=== PATIENT | female | born 1985 | race Caucasian/White ===

== ENCOUNTER 2019-01-01 07:54 | Outpatient (CLI) | payer BC, SELFPAY ==
[2019-01-01 09:17] LABS: TSH (W/Ref FT4) 1.56 uIU/mL (0.358-3.74)
== END 2019-01-01 08:14 ==
PROVIDERS: PCP Family Medicine; Visit Provider Family Medicine
DX: E89.0 Postprocedural hypothyroidism (principal)
CPT/HCPCS: 36415; 84443

== ENCOUNTER 2020-02-08 21:59 | Outpatient (REF) | payer BC, SELFPAY ==
[2020-02-08 19:36] LABS: TSH (W/Ref FT4) 0.11 uIU/mL (0.36-3.74)
[2020-02-08 20:14] LABS: FREE T4 1.29 ng/dL (0.76-1.46)
== END 2020-02-08 22:19 ==
LOC: NCHCN 21:59
PROVIDERS: PCP Family Medicine; Visit Provider Family Medicine
DX: E89.0 Postprocedural hypothyroidism (principal)
CPT/HCPCS: 84439; 84443

== ENCOUNTER 2020-08-03 09:54 | Outpatient (REF) | payer BC, SELFPAY ==
[2020-08-03 14:05] LABS: TSH (W/Ref FT4) 0.43 uIU/mL (0.36-3.74)
== END 2020-08-03 10:14 ==
LOC: NCHCN 09:54
PROVIDERS: PCP Family Medicine; Visit Provider Family Medicine
DX: E89.0 Postprocedural hypothyroidism (principal)
CPT/HCPCS: 84443

== ENCOUNTER 2022-01-30 16:00 | Outpatient (REF) | payer BC, SELFPAY ==
[2022-01-30 20:34] LABS: Calculated LDL 139 mg/dL (<100); Cholesterol 212 mg/dL (<200); HDL Cholesterol 58 mg/dL (40-60); TSH (W/Ref FT4) 0.45 uIU/mL (0.36-3.74); Triglyceride 79 mg/dL (<150)
[2022-01-30 20:58] LABS: Hemoglobin A1C 5.2 % (<5.7)
[2022-02-01 09:49] LABS: Hepatitis C Ab w Rflx HCV PCR Negative (Negative)
== END 2022-01-30 16:01 | disposition home or self-care (01) ==
LOC: NCHCN 16:00
PROVIDERS: PCP Family Medicine; Visit Provider Family Medicine
DX: E89.0 Postprocedural hypothyroidism (principal); Z00.00 Encounter for general adult medical examination without abnormal findings; Z13.1 Encounter for screening for diabetes mellitus; Z11.59 Encounter for screening for other viral diseases; Z13.220 Encounter for screening for lipoid disorders
CPT/HCPCS: 80061; 86803; 83036; 84443

== ENCOUNTER 2022-02-19 10:42 | Outpatient (REF) | payer BC, SELFPAY ==
--- NOTE | 2022-02-19 09:45 | PAPFT_PTH ---
PATIENT: Shasha Keating LOC: [facility] U#:[id number] AGE/SX: 36/F ROOM: RE02/19/[address]: Katy Gomes NP : 1985 BED: DIS: 02/19/2022 SPEC #: [id number] RECD: 02/19/22 12:45 STATUS: VICENTA PATTEN #: [id number] KARL: 02/19/22 09:[address]: Katy Gomes NP DEPT: [facility] Cytology RECD BY: Adan Martinez Tissues: 1 - CX/ENDOCX FOR PAP SMEARS Procedures: PAP THIN PREP/UVM Screening HPV DNA PROBE Comments: [id number]
== END 2022-02-19 10:43 | disposition home or self-care (01) ==
LOC: LBN 10:42
PROVIDERS: PCP Family Medicine; Visit Provider Nurse Practitioner Women's Health
DX: Z12.4 Encounter for screening for malignant neoplasm of cervix (principal); Z11.51 Encounter for screening for human papillomavirus (HPV)
CPT/HCPCS: 88142; 87624

== ENCOUNTER 2023-03-27 18:39 | Outpatient (REF) | payer BC, SELFPAY ==
[2023-03-27 16:08] LABS: TSH (W/Ref FT4) 1.41 uIU/mL (0.36-3.74)
== END 2023-03-27 18:40 | disposition home or self-care (01) ==
LOC: NCHCN 18:39
PROVIDERS: PCP Family Medicine; Visit Provider Family Medicine
DX: E89.0 Postprocedural hypothyroidism (principal)
CPT/HCPCS: 84443

== ENCOUNTER 2023-08-21 02:36 | Outpatient (CLI) | payer BC, SELFPAY ==
[2023-08-21 15:07] LABS: TSH 1.14 uIU/mL (0.36-3.74)
[2023-08-21 15:18] LABS: Vitamin D 25 Total 35.5 ng/mL (30-100)
== END 2023-08-21 02:37 | disposition home or self-care (01) ==
LOC: LBO 02:37
PROVIDERS: PCP Family Medicine; Visit Provider Student in an Organized Health Care Education/Training Program
DX: E03.9 Hypothyroidism, unspecified (principal); E55.9 Vitamin D deficiency, unspecified
CPT/HCPCS: 36415; 82306; 84443

== ENCOUNTER 2024-04-01 07:30 | Outpatient (CLI) | payer BC, SELFPAY | END 2024-04-01 07:31 | disposition home or self-care (01) | LOC: LBO 07:31 | PROVIDERS: PCP Family Medicine; Visit Provider Obstetrics & Gynecology Gynecology | DX: Z32.01 Encounter for pregnancy test, result positive (principal); N91.2 Amenorrhea, unspecified; E03.9 Hypothyroidism, unspecified | CPT/HCPCS: 36415; 84443 ==

== ENCOUNTER 2024-05-20 03:23 | Outpatient (CLI) | payer BC, SELFPAY ==
[2024-05-20 16:32] LABS: Panorama Kit Sent via Fed Ex
[2024-05-20 16:37] LABS: Abs Immature Grans 0.06 10^3/uL (0.0-0.06); Absolute Basophil Count 0.06 10^3/uL (0.0-0.2); Absolute Eosinophil Count 0.21 10^3/uL (0.0-0.7); Absolute Lymphocyte Count 2.35 10^3/uL (1.2-3.4); Absolute Monocyte Count 0.72 10^3/uL (0.1-0.8); Absolute Neutrophil Count 5.71 10^3/uL (1.2-6.7); Basophils % 0.7 %; Eosinophils % 2.3 %; HGB 14.9 g/dL (11.2-15.7); Immature Grans % 0.7 %; Lymphocytes % 25.8 %; MCH 31.8 pg (27.0-33.0); MCHC 34.7 % (32.0-36.0); MCV 92 fL (80-95); Monocytes % 7.9 %; Neutrophils % 62.6 %; Platelet Count 245 10^3/uL (130-400); RBC 4.69 10^6/uL (3.93-5.22); RDW 13.4 % (11.7-14.6); RDW-SD 44.7 fL; WBC 9.11 10^3/uL (4.4-10.8)
[2024-05-20 17:52] LABS: TSH (W/Ref FT4) 14.95 uIU/mL (0.36-3.74)
[2024-05-20 18:13] LABS: FREE T4 0.88 ng/dL (0.76-1.46)
[2024-05-21 20:10] LABS: Hepatitis B Surface Ag Negative (Negative)
[2024-05-21 20:48] LABS: HIV-1/2 Ag & Ab Screen Negative (Negative)
[2024-05-21 20:55] LABS: Hepatitis C Ab w Rflx HCV PCR Negative (Negative)
[2024-05-22 10:45] LABS: Rubella IgG Ab (UVM) Positive (See Note); Varicella IgG Antibody Positive (See Note)
[2024-05-22 13:07] LABS: Chlamydia Result Negative (Negative); GC Result Negative (Negative)
[2024-05-24 13:36] LABS: Syphilis IgG w/Reflex Nonreactive (Nonreactive)
[2024-05-25 16:58] LABS: Specimen WB Whole Blood
== END 2024-05-20 03:24 | disposition home or self-care (01) ==
LOC: LBO 03:23
PROVIDERS: PCP Student in an Organized Health Care Education/Training Program; Visit Provider Advanced Practice Midwife
DX: Z34.91 Encounter for supervision of normal pregnancy, unspecified, first trimester (principal)
CPT/HCPCS: 36415; 81329; 86787; 86803; 86850; 86900; 86901; 87340; 87389; 87491; 87591; 83036; 84439; 84443; 85025; 86762; 86780; 87086; 87480; 87510; 87660

== ENCOUNTER 2024-07-14 02:27 | Outpatient (CLI) | payer BC, SELFPAY ==
[2024-07-14 15:49] LABS: TSH (W/Ref FT4) 1.31 uIU/mL (0.36-3.74)
== END 2024-07-14 02:28 | disposition home or self-care (01) ==
LOC: LBO 02:27
PROVIDERS: PCP Student in an Organized Health Care Education/Training Program; Visit Provider Advanced Practice Midwife
DX: E03.9 Hypothyroidism, unspecified (principal); Z34.92 Encounter for supervision of normal pregnancy, unspecified, second trimester
CPT/HCPCS: 36415; 84443

== ENCOUNTER 2024-09-16 03:39 | Outpatient (CLI) | payer BC, SELFPAY ==
[2024-09-16 12:28] LABS: HCT 39.2 % (36.0-46.0); HGB 13.2 g/dL (11.2-15.7); MCH 31.9 pg (27.0-33.0); MCHC 33.7 % (32.0-36.0); MCV 95 fL (80-95); MPV 10.5 fL (8.0-11.0); Platelet Count 233 10^3/uL (130-400); RBC 4.14 10^6/uL (3.93-5.22); RDW 12.2 % (11.7-14.6); WBC 10.05 10^3/uL (4.4-10.8)
[2024-09-16 12:36] LABS: Glucose,1 Hr (Glucola) 177 mg/dL (80-140)
[2024-09-16 16:05] LABS: TSH (W/Ref FT4) 1.93 uIU/mL (0.36-3.74)
== END 2024-09-16 03:40 | disposition home or self-care (01) ==
LOC: LBO 03:39
PROVIDERS: PCP Student in an Organized Health Care Education/Training Program; Visit Provider Advanced Practice Midwife
DX: Z34.92 Encounter for supervision of normal pregnancy, unspecified, second trimester (principal); E03.9 Hypothyroidism, unspecified; O26.892 Other specified pregnancy related conditions, second trimester; Z67.91 Unspecified blood type, Rh negative
CPT/HCPCS: 36415; 82950; 85027; 86850; 84443

== ENCOUNTER 2024-09-25 00:25 | Outpatient (CLI) | payer BC, SELFPAY ==
[2024-09-25 08:44] LABS: Glucose 1 Hour 180 mg/dL
[2024-09-25 10:42] LABS: Glucose 3 Hour 107 mg/dL
== END 2024-09-25 00:26 | disposition home or self-care (01) ==
LOC: LBO 00:26
PROVIDERS: PCP Student in an Organized Health Care Education/Training Program; Visit Provider Advanced Practice Midwife
DX: R73.09 Other abnormal glucose (principal)
CPT/HCPCS: 36415; 82951

== ENCOUNTER 2024-10-06 00:48 | Outpatient (CLI) | payer BC, SELFPAY ==
--- NOTE | 2024-10-06 06:00 | DI.US_ITS ---
Exam(s) US OB JOSEPH WEIGHT EXAM: US OB JOSEPH WEIGHT CLINICAL HISTORY: growth,joseph,marginal insertion umbilical cord,O43.193. TECHNIQUE: Transabdominal obstetrical ultrasound was performed. COMPARISON: US POCUS EXAM from 04/29/2024 FINDINGS: There is a single viable intrauterine gestation with cardiac activity identified-136 bpm The fetus is presently in cephalic position with the spine pointing anteriorly. Amniotic fluid: There is a normal amount of amniotic fluid with an JOSEPH of 14.73cm. Placental location: The placenta is posterior/fundal anterior and posterior possible succenturiate lo be.,With no evidence of placenta previa.Three-vessel umbilical cord is identified. Dating parameters place this at approximately 35 weeks and 1 day gestational age, implying GILMA of 12/03/2024. BPD measures 31 weeks and 6 days HC measures 32 weeks and 2 days AC measures 31 weeks and 3 days FL measures 31 weeks and 2 days Estimated weight is 1781 gm-3 pounds, 15 ounces Fetus is at the 36th percentile on the Hadlock scale. IMPRESSION:: Viable 3rd trimester gestation, as described above. DATA REPOSITORY:
== END 2024-10-06 01:08 ==
LOC: DI 00:49
PROVIDERS: PCP Student in an Organized Health Care Education/Training Program; Visit Provider Advanced Practice Midwife
DX: O43.193 Other malformation of placenta, third trimester; Z3A.30 30 weeks gestation of pregnancy
CPT/HCPCS: 76816

== ENCOUNTER 2024-11-04 07:43 | Outpatient (CLI) | payer BC, SELFPAY ==
[2024-11-04 08:06] VITALS: BP 115/73; PULSE 83; TEMP 36.8
[2024-11-04 08:15] VITALS: BP 115/73; PULSE 83
--- NOTE | 2024-11-04 08:53 | W.OBNST ---
Date of service: 11/04/24 Time of Service: 08:54 NST Evaluation Reason for NST Reasons for Nonstress Test: ADVANCED MATERNAL AGE Gestational Age Gestational Age in Weeks and Days: 35 Weeks and 5Days Test and Monitor Explained Test/Monitor Explained: Test Explained, Monitor Explained and Patient Verbalized Understanding Vital Signs Blood Pressure: 115/73 Pulse: 83 Temperature: 98.3 F Urine Results Urine Protein: Negative Urine Ketones: Negative Urine Glucose: Negative Urine Blood: Negative NST Information Date on Monitor: 11/04/24 Time on Monitor: 07:57 Date off Monitor: 11/04/24 Time off Monitor: 08:29 Total Time on Monitor: 32 NST Interventions: PO Hydration Contraction Frequency: 0 NST Evaluation Patient States Movement: Present FHR Baseline: 130 Variability: Moderate 6-25 bpm Accelerations: 15x15 Decelerations: None NST Results: Reactive Note Ultrasound Done: N/A. NST Note Note: Reactive NST, see note. NST Reviewed and Verified by: Eliana Woo
[2024-11-04 08:54] VITALS: BP 115/73; PULSE 83; TEMP 36.8
== END 2024-11-04 09:54 ==
LOC: BCD 07:43 → OBS 08:03
PROVIDERS: PCP Student in an Organized Health Care Education/Training Program; Visit Provider Advanced Practice Midwife
DX: O09.523 Supervision of elderly multigravida, third trimester (principal); Z3A.35 35 weeks gestation of pregnancy
CPT/HCPCS: 59025; 87081

== ENCOUNTER 2024-11-11 07:18 | Outpatient (CLI) | payer BC, SELFPAY ==
[2024-11-11 07:26] VITALS: BP 125/76; PULSE 86; TEMP 36.5
[2024-11-11 08:06] VITALS: BP 125/76; PULSE 86; TEMP 36.5
[2024-11-11 08:10] VITALS: BP 125/76; PULSE 86; TEMP 36.5
== END 2024-11-11 08:35 ==
LOC: BCD 07:18 → OBS 07:25
PROVIDERS: PCP Student in an Organized Health Care Education/Training Program; Visit Provider Advanced Practice Midwife
DX: O09.513 Supervision of elderly primigravida, third trimester (principal); Z3A.37 37 weeks gestation of pregnancy
CPT/HCPCS: 59025

== ENCOUNTER 2024-11-11 09:00 | Outpatient (CLI) | payer BC, SELFPAY ==
--- NOTE | 2024-11-11 08:53 | W.OBNST ---
Date of service: 11/11/24 Time of Service: 08:53 NST Evaluation Reason for NST Reasons for Nonstress Test: ADVANCED MATERNAL AGE Gestational Age Gestational Age in Weeks and Days: 36 Weeks and 5Days Vital Signs Blood Pressure: 125/77 NST Information Date on Monitor: 11/11/24 Time on Monitor: 08:20 Date off Monitor: 11/11/24 Time off Monitor: 08:54 Total Time on Monitor: 34 NST Interventions: PO Hydration Contraction Frequency: rare NST Evaluation Patient States Movement: Present FHR Baseline: 130 Variability: Moderate 6-25 bpm Accelerations: 15x15 Decelerations: None NST Results: Reactive Note Ultrasound Done: N/A. NST Note Note: continue weekly NST NST Reviewed and Verified by: Esthela Crawley
[2024-11-11 08:54] VITALS: BP 125/77
[2024-11-11 08:55] LABS: HGB 12.5 g/dL (11.2-15.7); MCH 30.6 pg (27.0-33.0); MCHC 32.9 % (32.0-36.0); MCV 93 fL (80-95); MPV 10.2 fL (8.0-11.0); Platelet Count 219 10^3/uL (130-400); RBC 4.08 10^6/uL (3.93-5.22); RDW 12.2 % (11.7-14.6); RDW-SD 41.9 fL; WBC 9.13 10^3/uL (4.4-10.8)
[2024-11-11 10:03] LABS: TSH (W/Ref FT4) 2.24 uIU/mL (0.36-3.74)
[2024-11-11 10:05] LABS: Hemoglobin A1C 5.4 % (<5.7)
== END 2024-11-11 09:01 | disposition home or self-care (01) ==
PROVIDERS: PCP Student in an Organized Health Care Education/Training Program; Visit Provider Advanced Practice Midwife
DX: Z34.90 Encounter for supervision of normal pregnancy, unspecified, unspecified trimester (principal); E03.9 Hypothyroidism, unspecified; R73.09 Other abnormal glucose
CPT/HCPCS: 36415; 85027; 83036; 84443

== ENCOUNTER 2024-11-16 00:41 | Outpatient (CLI) | payer BC, SELFPAY ==
--- NOTE | 2024-11-16 06:45 | DI.US_ITS ---
Exam(s) US OB JOSEPH WEIGHT EXAM: US OB JOSEPH WEIGHT CLINICAL HISTORY: interval growth and JOSEPH, ADVANCED MATERNAL AGE, , Z34.90. TECHNIQUE: Transabdominal obstetrical ultrasound was performed. COMPARISON: US US OB JOSEPH WEIGHT from 10/06/2024 FINDINGS: There is a single viable intrauterine gestation with cardiac activity identified-165 bpm The fetus is presently in cephalic position . Amniotic fluid: There is a normal amount of amniotic fluid with an JOSEPH of 0.6cm. Placental location: The placenta is posterior and anterior fundal/succenturiate/grade 2,with no evide nce of placenta previa. Dating parameters place this at approximately 37 weeks and 1 day gestational age, implying GILMA of 12/06/2024. BPD measures 36 weeks and 3 days HC measures 37 weeks and 1 day AC measures 39 weeks and 3 days FL measures 35 weeks and 4 days Estimated weight is 3352 gm-7 pounds, 6 ounces Fetus is at the 72nd percentile on the Hadlock scale. IMPRESSION:: Viable 3rd trimester gestation, as described above. DATA REPOSITORY:
== END 2024-11-16 01:01 ==
LOC: DI 00:41
PROVIDERS: PCP Student in an Organized Health Care Education/Training Program; Visit Provider Advanced Practice Midwife
DX: Z34.93 Encounter for supervision of normal pregnancy, unspecified, third trimester (principal); Z3A.37 37 weeks gestation of pregnancy
CPT/HCPCS: 76816

== ENCOUNTER 2024-11-18 07:12 | Outpatient (CLI) | payer BC, SELFPAY ==
[2024-11-18 08:11] VITALS: BP 128/72; PULSE 79
--- NOTE | 2024-11-18 08:40 | W.OBNST ---
Date of service: 11/18/24 Time of Service: 08:40 NST Evaluation Reason for NST Reasons for Nonstress Test: ADVANCED MATERNAL AGE Gestational Age Gestational Age in Weeks and Days: 37 Weeks and 5Days Test and Monitor Explained Test/Monitor Explained: Test Explained, Monitor Explained and Patient Verbalized Understanding Vital Signs Blood Pressure: 128/72 Pulse: 79 Urine Results Urine Protein: Negative Urine Ketones: Negative Urine Glucose: Negative Urine Blood: Negative NST Information Date on Monitor: 11/18/24 Time on Monitor: 08:01 Date off Monitor: 11/18/24 Time off Monitor: 08:23 Total Time on Monitor: 22 NST Interventions: PO Hydration Contraction Frequency: irritability NST Evaluation Patient States Movement: Present FHR Baseline: 130 Variability: Moderate 6-25 bpm Accelerations: 15x15 Decelerations: None NST Results: Reactive Note Ultrasound Done: N/A. NST Note NST Reviewed and Verified by: Esthela Crawley
[2024-11-18 08:41] VITALS: BP 128/72; PULSE 79
== END 2024-11-18 08:25 ==
PROVIDERS: PCP Student in an Organized Health Care Education/Training Program; Visit Provider Advanced Practice Midwife
DX: Z3A.37 37 weeks gestation of pregnancy (principal); O09.523 Supervision of elderly multigravida, third trimester
CPT/HCPCS: 59025

== ENCOUNTER 2024-11-25 07:21 | Outpatient (CLI) | payer BC, SELFPAY ==
[2024-11-25 08:08] VITALS: BP 125/76; PULSE 81; RESP 18
[2024-11-25 08:26] VITALS: BP 125/76; PULSE 81
[2024-11-25 08:45] VITALS: BP 125/76; PULSE 81
[2024-11-25 09:32] VITALS: BP 125/76; PULSE 81
--- NOTE | 2024-11-25 09:32 | W.OBNST ---
Date of service: 11/25/24 Time of Service: 09:32 NST Evaluation Reason for NST Reasons for Nonstress Test: ADVANCED MATERNAL AGE Gestational Age Gestational Age in Weeks and Days: 38 Weeks and 5Days Test and Monitor Explained Test/Monitor Explained: Test Explained, Monitor Explained and Patient Verbalized Understanding Vital Signs Blood Pressure: 125/76 Pulse: 81 Urine Results Urine Protein: Negative Urine Ketones: Negative Urine Glucose: Negative Urine Blood: Negative NST Information Date on Monitor: 11/25/24 Time on Monitor: 08:05 Date off Monitor: 11/25/24 Time off Monitor: 08:40 Total Time on Monitor: 35 NST Interventions: None NST Evaluation Patient States Movement: Present Variability: Moderate 6-25 bpm Accelerations: 15x15 Decelerations: None NST Results: Reactive Note Ultrasound Done: N/A. NST Note Note: NST next week NST Reviewed and Verified by: Esthela Crawley
== END 2024-11-25 08:45 ==
LOC: BCD 07:21 → OBS 13:44
PROVIDERS: PCP Student in an Organized Health Care Education/Training Program; Visit Provider Advanced Practice Midwife
DX: O09.523 Supervision of elderly multigravida, third trimester (principal); Z3A.38 38 weeks gestation of pregnancy
CPT/HCPCS: 59025

== ENCOUNTER 2024-12-01 22:22 | Inpatient (IN) | payer BC, SELFPAY ==
[2024-12-01 22:38] VITALS: BP 136/77; PULSE 87; TEMP 36.2
[2024-12-01 22:39] VITALS: BP 136/81; PULSE 77
[2024-12-01 22:46] VITALS: PULSE 77; RESP 136; TEMP 36.5
[2024-12-01 22:47] LABS: HCT 36.9 % (36.0-46.0); HGB 12.4 g/dL (11.2-15.7); MCH 29.8 pg (27.0-33.0); MCHC 33.6 % (32.0-36.0); MCV 89 fL (80-95); MPV 10.6 fL (8.0-11.0); Platelet Count 240 10^3/uL (130-400); RBC 4.16 10^6/uL (3.93-5.22); RDW 12.2 % (11.7-14.6); RDW-SD 39.3 fL
[2024-12-01 22:50] VITALS: PULSE 87; O2SAT 98
--- NOTE | 2024-12-01 23:39 | HPE_ITS ---
Date of service: 12/01/24 Time of Service: 23:39 Assessment and Plan Assessment and plan (1) Spontaneous onset of labor: Status: Acute Assessment and plan: Admit to Center and routine admission labs. Rest encouraged. Comfort measures. Await spontaneous labor and nticipate . Consider labor augmentation if indicated. Discussed I.V. access and Shasha prefers no I.V. unless medically indicated. OB-HPI Labor/Delivery History of Present Illness Reason for Visit: Term Labor Chief Complaint: Uterine Contractions; Suspected Rupture of Membranes , Associated Signs and Symptoms of Suspected ROM: mild contractions. GILMA Calculator Estimated Delivery Date Method Current WG Current Estimate 12/04/24 Conception 39w 4d Other Estimates 12/08/24 LMP (Certain) 39w 0d 12/08/24 Ultrasound #1 39w 0d 12/04/24 Ultrasound #2 39w 4d Comments: Shasha called and reported a large gush or clear fluid and occasional contractions. She is here with her two children and and sister in law. History of Present Expected Delivery Route/Plan - CNM FOB/ - Eric Keating (3rd child together) Does not want to know gender until delivery Wants to labor in the tub, maybe waterbirth, nitrous Hopes to avoid induction in favor of surveillance from 37 wks (EFW/JOSEPH, NST's biweekly) GBS negative Specific Issues/Plan 1. AMA >40yrs; SMA/CF neg, cfDNA - low risk, accepts level 2 scan and [facility] consult @ [place] 07/21/24=nml with ecentric cord insertion 1a. [facility] recommends 32wk growth US, weekly testing @ 36wks, consider IOL 39wks 1b. At 31 wks EFW in 36th percentile, JOSEPH 13, cephalic presentation 1c. Plan EFW/JOSEPH @ 37 wks 72nd percentile, JOSEPH 10.6 2. Low dose ASA for AMA and >10 yrs since last 3. Rh neg, is A neg (per [facility], see scanned card), RhoGam not indicated 4. Fam hx breast CA, never had a mammogram, will plan for & annually 5. Hypothryoidism, levothyroxine 137 mcg, initial TSH=14.95, increase Rx to 175 mcg (per Dr. Christina) 5a. 2nd trimester TSH- 1.31, 3rd trimester TSH=1.93 at 28 wks 6. Flu dx'ed at 24 wks, PCP placed pt on Tamiflu 7. Glucola @ 28 czv=025, 3 hr GTT 29 wks: 80/180/154/107, 1 hr=elevated, met with DM educator x2 Assessment: History Reviewed & Current PFSH All Active Problems (Updated 12/01/24 @ 23:44 by Lainey Farmer CNM) Spontaneous onset of labor (Acute) Elevated glucose (Acute) Rh negative status during (Acute) (Acute) Advanced maternal age (AMA) in (Acute) Acquired hypothyroidism (Acute 07/30/13) (+)TPO ABs; checked TSH, free T4 09/30/14, dose unchanged. 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 Date GA/Weeks # Preg Succ Route Wgt Sex Labor Lgth Anesth esia Location [facility] 06/13/12 40 No Yes vaginal 7 lb [address] Ty burnham @ [facility] 01/13/15 40 No Yes vaginal 8 lb [address] Ramirez @ [facility] Delivery Date: 06/13/12 Last Updated by: Esthela Crawley Nml , no meds [place] Delivery Date: 01/13/15 Last Updated by: Lainey Farmer CNM Rapid labor, EBL 250 cc and late PPH of 500 cc per delivery note, Controlled with IV Pitocin and expression of clots and emptying her bladder. no transfusion needed, [place] Meds Allergies and Home Medications Allergies Allergy/AdvReac Type Severity Reaction Status Date / Time Lobster AdvReac Severe Facial, Uncoded 11/25/24 08:31 feet swelling Home Medications ?Medication ?Instructions ?Recorded ?Confirmed ?Type vit no.95-ferrous 1 ea PO DAILY 06/05/16 11/25/24 History fumarate 28 mg-folic acid 800 mcg tablet () aspirin 81 mg tablet,delayed 81 mg PO DAILY #90 tabs 05/20/24 11/25/24 Rx release levothyroxine 175 mcg tablet See Rx Instructions .Route 10/19/24 11/25/24 Rx .COMPLEX #30 tabs Exam Physical Exam Vital signs: Temp Pulse Resp BP Pulse Ox 97.7 F 87 136 H 136/81 98 12/01/24 22:46 12/01/24 22:50 12/01/24 22:46 12/01/24 22:39 12/01/24 22:50 Vital Signs Reviewed: Yes Constitutional Constitutional: no acute distress Detailed Labor and Delivery Exam Tobar Score: Cervical Points Exam 0 1 2 3 Dilation Closed 1-2cm 3-4 cm 5-6cm Effacement 0-30% 40-50% 60-70% 80% Consistency Firm Medium Soft Station -3 -2 -1,0 +1,+2 Position Posterior Mid Anterior Monitor Mode: External Contraction Frequency(min): evry 6-7 Contraction Duration(sec): 50-60 Contraction Intensity: Mild Comments: Shasha denies discomfort with contractions but has been experiencing an electric shock feeling down her right inner thigh. She declines cervical exam at this time. Vertex by Josie. Fetus A Heart Rate Baseline: 120 Monitor Accelerations: 15 X 15 Monitor Decelerations: None Variability: Moderate (6-25 BPM) Presentation: Cephalic Categories: Category I Est. Weight: 7 lb HEENT Exam HEENT Exam: Normal Respiratory Exam Respiratory Exam: Normal Cardiovascular Exam Cardiovascular Exam: Normal Abdominal Exam Abdominal Exam: Normal Exam Exam: Normal Extremities Exam Extremities Exam: Normal Skin Exam Skin Exam: Normal Psychiatric Exam Psychiatric Exam: Normal Risk Assessment Risk for Shoulder Dystocia Historical/Initial OB: NEGATIVE FOR: Pelvic Abnormality, Pre- BMI>30, Previous Shoulder Dystocia or Previous Macrosomia 36 Weeks: POSITIVE FOR: Maternal Weight Gain>40lbs; NEGATIVE FOR: Current Gestational DM or EFW>4500gms 40 Weeks: NEGATIVE FOR: EFW> 4500 gms, Maternal Weight Gain >40lb or Post Dates Counseling: pelvis proven to 8'3 Delivery Plan @ 36wks: Risk for Pre-Eclampsia Yes, if one or more: NEGATIVE FOR: Hx Pre-E/Gest HTN, Chronic HTN, Multiple Gestation, Pre-gestational DM, Renal Disease, Systemic Lupus or APA Syndrome Yes, if 2 or more: POSITIVE FOR: Age>= 35 yrs and >10yr btwn pregnancies; NEGATIVE FOR: Nulliparity, BMI>30, ethinicty, Mother/Sister w/ Pre-E or Previous IUGR Risk for Post- Hemorrhage Initial: POSITIVE FOR: Previous PPH; NEGATIVE FOR: Multiple Gestation, Known Clotting Deficiency, Grand Multiparity or Anticoagulation 36 Weeks: NEGATIVE FOR: Anemia, hgb<10, Low platelets(thrombocytopenia), Gestational HTN or Pre-E, Polyhydraminios or EFW>4500gms 40 Weeks: NEGATIVE FOR: Anemia, hgb<10, Low platelets (thrombocytopenia), Gestation HTN or Pre-E, Polyhydraminios or EFW>4500gms Counseled re: Active Management: Yes (Discussed at 30 weeks. KM) Risks Reviewed Risks Reviewed Upon Admission: Yes
[2024-12-02] VITALS (93 sets, daily range): BP systolic 75–173; BP diastolic 50–99; PULSE 69–141; RESP 10–97; TEMP 36.5–37.2; O2SAT 96–100; BMI 28.8
[2024-12-02 00:06] LABS: Uric Acid 3.9 mg/dL (2.6-6.0)
[2024-12-02 00:07] LABS: ALT 25 U/L (14-59); AST 26 U/L (15-37); Albumin 3.1 g/dL (3.4-5.0); Alkaline Phosphatase 259 U/L (46-116); Anion Gap 11.6 mmol/L (3-11); BUN 13 mg/dL (7-18); Bilirubin, Total 0.3 mg/dL (0.2-1.0); CO2 23.4 mmol/L (21.0-32.0); CREATININE 0.6 mg/dL (0.55-1.02); Calcium 9.2 mg/dL (8.5-10.1); Chloride 104 mmol/L (98-107); Estimated GFR 115.57 (mL/min/1.73m2); Glucose 94 mg/dL (74-106); Potassium 3.9 mmol/L (3.5-5.1); Sodium 139 mmol/L (136-145); Total Protein 6.9 g/dL (6.4-8.2)
[2024-12-02] MEDS: miSOPROStol 25 MCG TAB PO (09:17)
--- NOTE | 2024-12-02 09:43 | W.PM.OBNL1 ---
Date of service: 12/02/24 Time of Service: 09:43 Pelvic Exam Dilation: 2 Effacement (%): 50 station: -1 Cervix Position: posterior Consistency: soft Vaginal Exam Presentation: Cephalic Pooling: Positive Contractions Monitor Mode: External Contraction Frequency(min): every 10-12 Contraction Duration(sec): 50 Intensity: Mild/Moderate Fetus A Monitor: External (US) Heart Rate Baseline: 130 Variability: Moderate (6-25 BPM) Categories: Category I FHR Rhythm: Regular Accelerations: 15 X 15 Decelerations: None Assessment and Plan Assessment and plan (1) Prolonged rupture of membranes: Status: Acute Assessment and plan: Discussed options of expectant management vs. Induction of labor with pitocin or misoprostol. Shasha wishes to avoid continuous monitoring or IV so she chose to proceed with misoprostol for cervical ripening. 25 mcg misoprostol PO was ordered with continuous monitoring for 2 hours after each dose. Comfort measures. Shasha hopes to deliver in water if possible. Anticipate . Objective Abnormal lab results 12/01/24 Range/Units 22:40 Anion Gap 11.6 H (3-11) mmol/L Alkaline Phosphatase 259 H (46-116) U/L Albumin 3.1 L (3.4-5.0) g/dL Temp Pulse Resp BP Pulse Ox 98.2 F 83 136 H 123/75 98 12/02/24 07:30 12/02/24 07:30 12/01/24 22:46 12/02/24 07:30 12/01/24 22:50 Laboratory Results WBC 10.70 10^3/uL (4.4-10.8) 12/01/24 22:40 RBC 4.16 10^6/uL (3.93-5.22) 12/01/24 22:40 Hgb 12.4 g/dL (11.2-15.7) 12/01/24 22:40 Hct 36.9 % (36.0-46.0) 12/01/24 22:40 MCV 89 fL (80-95) 12/01/24 22:40 MCH 29.8 pg (27.0-33.0) 12/01/24 22:40 MCHC 33.6 % (32.0-36.0) 12/01/24 22:40 RDW 12.2 % (11.7-14.6) 12/01/24 22:40 Plt Count 240 10^3/uL (130-400) 12/01/24 22:40 MPV 10.6 fL (8.0-11.0) 12/01/24 22:40 Sodium 139 mmol/L (136-145) 12/01/24 22:40 Potassium 3.9 mmol/L (3.5-5.1) 12/01/24 22:40 Chloride 104 mmol/L (98-107) 12/01/24 22:40 Carbon Dioxide 23.4 mmol/L (21.0-32.0) 12/01/24 22:40 Anion Gap 11.6 mmol/L (3-11) H 12/01/24 22:40 BUN 13 mg/dL (7-18) 12/01/24 22:40 Creatinine 0.6 mg/dL (0.55-1.02) 12/01/24 22:40 Est GFR (CKD-EPI 2020) 115.57 (mL/min/1.73m2) 12/01/24 22:40 Glucose 94 mg/dL (74-106) 12/01/24 22:40 Uric Acid 3.9 mg/dL (2.6-6.0) 12/01/24 22:40 Calcium 9.2 mg/dL (8.5-10.1) 12/01/24 22:40 Total Bilirubin 0.3 mg/dL (0.2-1.0) 12/01/24 22:40 AST 26 U/L (15-37) 12/01/24 22:40 ALT 25 U/L (14-59) 12/01/24 22:40 Alkaline Phosphatase 259 U/L (46-116) H 12/01/24 22:40 Total Protein 6.9 g/dL (6.4-8.2) 12/01/24 22:40 Albumin 3.1 g/dL (3.4-5.0) L 12/01/24 22:40 ABO/Rh O Negative 12/01/24 22:40 Antibody Screen NEGATIVE 12/01/24 22:40 Vital Signs Reviewed: Yes Subjective Patient Reports: No new Complaints Interval history since last seen: Contractions and cramping experienced through the night. Shasha rested and took 2 naps. Results Hemoglobin/Hematocrit: Hgb 12.4 g/dL (11.2-15.7) 12/01/24 22:40 Hct 36.9 % (36.0-46.0) 12/01/24 22:40 Abnormal Lab Findings: Abnormal Labs 12/01/24 22:40 Anion Gap 11.6 H Alkaline Phosphatase 259 H Albumin 3.1 L
[2024-12-02] MEDS: Levothyroxine 175 MCG TAB PO (13:26)
[2024-12-02] MEDS: Oxytocin 10 UNITS/ML VIAL IM (15:24)
[2024-12-02] MEDS: Lidocaine 1% Multi-Dose 20 ML VIAL IJ (15:30)
--- NOTE | 2024-12-02 15:30 | PLAC_PTH ---
PATIENT: Shasha Keating LOC: [facility] U#:[id number] AGE/SX: 39/F ROOM: OBS.301 RE12/01/[address]: Lainey Farmer : 1985 BED: A DIS: 12/04/2024 SPEC #: [id number] RECD: 12/04/24 12:07 STATUS: VICENTA REQ #: [id number] KARL: 12/02/24 15:[address]: Lainey Farmer DEPT: Surgical Specimen RECD BY: Marycarmen Alcaraz ENTERED: 12/04/24 12:08 SP TYPE: PLAC OTHR DR: Adolfo Myers Tissues: 1 - PLACENTA (3RD TRIMESTER) Procedures: GROSS AND MICRO LEVEL 5 Comments: [id number]
[2024-12-02] MEDS: miSOPROStol 100 MCG TAB 600 MCG PO (15:36)
[2024-12-02] MEDS: Oxytocin/Normal Saline 30 UNIT/500 ML BAG 334 UNITS IV (15:41)
[2024-12-02] MEDS: Methylergonovine 0.2 MG/ML VIAL (15:53)
[2024-12-02] MEDS: TRANEXAMIC ACID 1,000 MG in Normal Saline 90 ML 400 MG IVPB (16:18)
[2024-12-02] MEDS: Oxytocin/Normal Saline 30 UNIT/500 ML BAG 999 UNITS IV (18:00)
--- NOTE | 2024-12-02 18:37 | ANES.PREOP_ITS ---
General Info Date of Service Date Performed: 12/02/24 Height: 5 ft 5 in Weight: 78.471 kg Body Mass Index (BMI): 28.8 Surgical Procedure: Operation Date: 12/02/24 18:30 Proposed Procedure Side Surgeon p Dilation & Curettage Montse Gomes MD Meds Allergies and Home Medications Allergies Allergy/AdvReac Type Severity Reaction Status Date / Time Lobster AdvReac Severe Facial, Uncoded 11/25/24 08:31 feet swelling Home Medication ?Medication ?Instructions ?Recorded vit no.95-ferrous 1 ea PO DAILY 06/05/16 fumarate 28 mg-folic acid 800 mcg tablet () aspirin 81 mg tablet,delayed 81 mg PO DAILY #90 tabs 05/20/24 release levothyroxine 175 mcg tablet See Rx Instructions .Route 10/19/24 .COMPLEX #30 tabs Current Visit Medications: Current Medications Generic Name Dose Route Start Last Admin Trade Name Freq PRN Reason Stop Dose Admin Acetaminophen 650 mg 12/02/24 16:21 Acetaminophen 325 Mg Tab PO Q4H PRN PRN Dibucaine 0 gm 12/02/24 16:21 Dibucaine 1% 28 Gm Tube TP TID PRN PRN Docusate Sodium 100 mg 12/02/24 16:21 Docusate Sodium 100 Mg Cap PO BID PRN PRN Ringer's Solution 1,000 mls @ 200 mls/hr 12/02/24 08:45 IV INFUSION [facility] Oxytocin/Sodium Chloride 30 unit in 500 mls @ 95 mls/hr 12/02/24 16:30 Pitocin/Normal Saline IV INFUSION [facility] Protocol IV Miscellaneous Supplies 1 each 12/01/24 22:30 Iv Access IV DIRECTED [facility] IV Miscellaneous Supplies 1 each 12/02/24 16:30 Iv Access IV DIRECTED [facility] Ibuprofen 600 mg 12/02/24 16:21 Ibuprofen 600 Mg Tab PO Q6H PRN PRN Levothyroxine Sodium 175 mcg 12/02/24 07:00 12/02/24 13:26 Levothyroxine 175 Mcg Tab PO 175 mcg 0600 NAHUN Administration Lidocaine HCl 20 ml 12/02/24 16:21 Lidocaine 1% Multi-Dose 20 Ml Vial IJ DIRECTED PRN Magnesium Hydroxide 30 ml 12/02/24 16:21 Milk Of Magnesia 30 Ml Cup PO HS PRN PRN Misoprostol 25 mcg 12/02/24 09:00 12/02/24 09:17 Misoprostol 25 Mcg Tab PO 25 mcg Q4H NAHUN Administration Misoprostol 400 mcg 12/02/24 16:21 Misoprostol 200 Mcg Tab SL 12/03/24 16:22 PRN PRN Misoprostol 600 mcg 12/02/24 17:30 Misoprostol 100 Mcg Tab PO Q8H NAHUN Oxytocin 10 units 12/02/24 16:30 Oxytocin 10 Units/Ml Vial IM 12/02/25 16:29 DIRECTED NAHUN Rho Immune Globulin 1,500 unit 12/02/24 16:30 Rho(D) Immune Globulin 1,500 Unit Syringe IM DIRECTED NAHUN Sodium Chloride 0 ml 12/01/24 22:21 Normal Saline Flush 10 Ml Syr IVP PRN PRN Sodium Chloride 0 ml 12/02/24 08:30 Normal Saline Flush 10 Ml Syr IVP BID NAHUN Sodium Chloride 0 ml 12/01/24 22:21 Normal Saline 10 Ml Vial IJ DIRECTED PRN Sodium Chloride 0 ml 12/02/24 16:21 Normal Saline Flush 10 Ml Syr IVP PRN PRN Sodium Chloride 0 ml 12/02/24 20:00 Normal Saline Flush 10 Ml Syr IVP BID NAHUN Sodium Chloride 0 ml 12/02/24 16:21 Normal Saline 10 Ml Vial IJ DIRECTED PRN Terbutaline Sulfate 0.25 mg 12/02/24 08:39 Terbutaline 1 Mg/Ml Vial SC PRN PRN Witch Molly/Glycerin 0 each 12/02/24 16:21 [place]/Glycerin 100 Each Box [place] PRN PRN Discomfort Zolpidem Tartrate 10 mg 12/02/24 21:00 Zolpidem 5 Mg Tab PO 12/03/24 06:00 2100 [facility] PFSH Active Problems Active Problems: Problem Status Onset Code Prolonged rupture of membranes Acute O42.90 Spontaneous onset of labor Acute Rh negative status during Acute O26.899, Z67.91 Acute Z34.90 Medical History Medical History (Updated 12/02/24 @ 09:45 by Lainey Farmer CNM) Acquired hypothyroidism (07/30/13) (+)TPO ABs; checked TSH, free T4 09/30/14, dose unchanged. Migraine aura occurring with and without headache Positive test Tobacco Smoking/Tobacco Use Status: Former Tobacco Use Prental History History 2 3 Para 2 Hx # Term Pregnancies 2 Multiple births 0 Hx # Pregnancies 0 Ectopic pregnancies 0 AB induced 0 Hx Number of Living Children 2 AB spontaneous 0 Past Pregnancies Del. Date GA/Weeks # Preg Succ Route Wgt Sex Labor Lgth Anesth esia Location [facility] 06/13/12 40 No Yes vaginal 3260.[address] Drake @ [facility] 01/13/15 40 No Yes vaginal 3713.[address] Ramirez @ [facility] Delivery Date: 06/13/12 Last Updated by: Esthela Crawley Nml , no meds [place] Delivery Date: 01/13/15 Last Updated by: Lainey Farmer CNM Rapid labor, EBL 250 cc and late PPH of 500 cc per delivery note, Controlled with IV Pitocin and expression of clots and emptying her bladder. no transfusion needed, [place] Vital Signs and Lab Results Vital Signs Most Recent Vital Signs in EMR: Most Recent Vital Signs Temp Pulse Resp BP Pulse Ox 37.2 C 100 H 18 173/82 H 100 12/02/24 14:58 12/02/24 18:33 12/02/24 11:20 12/02/24 18:33 12/02/24 18:30 Lab Results 12/01/24 22:40 12/01/24 22:40 Blood Type / Crossmatch: 2 Antibody Screen NEGATIVE 12/01/24 Complete Blood Count: 2 White Blood Count 10.70 10^3/uL (4.4-10.8) 12/01/24 22:40 Red Blood Count 4.16 10^6/uL (3.93-5.22) 12/01/24 22:40 Hemoglobin 12.4 g/dL (11.2-15.7) 12/01/24 22:40 Hematocrit 36.9 % (36.0-46.0) 12/01/24 22:40 Platelet Count 240 10^3/uL (130-400) 12/01/24 22:40 Complete Metabolic Panel: 2 Sodium 139 mmol/L (136-145) 12/01/24 22:40 Potassium 3.9 mmol/L (3.5-5.1) 12/01/24 22:40 Chloride 104 mmol/L (98-107) 12/01/24 22:40 Carbon Dioxide 23.4 mmol/L (21.0-32.0) 12/01/24 22:40 BUN 13 mg/dL (7-18) 12/01/24 22:40 Creatinine 0.6 mg/dL (0.55-1.02) 12/01/24 22:40 Est GFR (CKD-EPI 2020) 115.57 (mL/min/1.73m2) 12/01/24 22:40 Calcium 9.2 mg/dL (8.5-10.1) 12/01/24 22:40 Albumin 3.1 g/dL (3.4-5.0) L 12/01/24 22:40 Glucose 94 mg/dL (74-106) 12/01/24 22:40 Hemoglobin A1c 5.4 % (<5.7) 11/11/24 08:48 Liver Function Panel: 2 Alanine Aminotransferase (ALT/SGPT) 25 U/L (14-59) 12/01/24 22: 40 Aspartate Amino Transf (AST/SGOT) 26 U/L (15-37) 12/01/24 22:40 Coagulation Panel: 2 INR International Normalized Ratio Pending 12/02/24 18:2 0 Prothrombin Time Pending 12/02/24 18:20 Activated Partial Thromboplast Time Pending 12/02/24 18: 20 Fibrinogen Pending 12/02/24 18:19 Cardiac Panel: 2 No Data to Display Arterial Blood Gas: 2 No Data to Display Venous Blood Gas: 2 No Data to Display Pancreas Panel: 2 No Data to Display Thyroid Panel: 2 Thyroid Stimulating Hormone (TSH) 2.24 uIU/mL (0.36-3.74) 11/11 08:48 Infectious Disease: 2 No Data to Display Blood Cultures: 2 No Data to Display Toxicology Panel: 2 No Data to Display Panel: 2 No Data to Display Anesthesia Assessment and Plan Anesthesia History Personal History: No History of Anesthesia Complications Family History: No Family History of Anesthesia Complications Exercise Tolerance Exercise Tolerance: Metabolic Equivalents>4 Pertinent Negatives Pertinent Negatives: No Major Cardiovascular Symptoms or Complaints, No Major Pulmonary Symptoms or Complaints and No History of CVA/TIA Cardiac & Pulmonary Exam Cardiac Exam: Normal S1/S2 Heart Sounds Pulmonary Exam: Clear Bilateral Breath Sounds Implantable Cardiac Device Does patient have a Pacemaker or an ICD?: No Airway Exam Known Difficult Airway: No Mallampati Class: 2 Mouth Opening: Normal (> 3cm) Thyromental Distance: Greater than 3 cm Neck Range of Motion: Full ROM Neck Circumference: Normal Teeth Condition: Normal Dentition ASA Classification ASA Score: ASA 2 Emergency Case?: No NPO Status NPO Status: Full Stomach Status Status: Other (recent parturient: PPH) Anesthesia Plan Resuscitation Status: Full Code Anesthesia Technique: General Anesthesia Airway Planned: Endotracheal Tube Monitors Used: Standard Monitors Preoperative Comments:: Emergency case
[2024-12-02] MEDS: Lactated Ringers 1,000 ML 200 ML IV (18:43)
[2024-12-02 18:47] LABS: HCT 28.1 % (36.0-46.0); MCH 30.1 pg (27.0-33.0); MCHC 33.5 % (32.0-36.0); MCV 90 fL (80-95); MPV 10.8 fL (8.0-11.0); Platelet Count 217 10^3/uL (130-400); RBC 3.12 10^6/uL (3.93-5.22); RDW 12.3 % (11.7-14.6); RDW-SD 40.1 fL
[2024-12-02 18:48] LABS: HGB 9.4 g/dL (11.2-15.7)
[2024-12-02 19:03] LABS: PTT Activated 22.7 sec (20.6-30.2); Prothrombin Time 9.9 sec (9.1-11.1)
--- NOTE | 2024-12-02 19:07 | OBVDS_ITS ---
Date of service: 12/02/24 Time of Service: 19:07 OB Labor/ Delivery Information Baby A Delivery Delivery Method: Spontaneaous Presentation: Cephalic Vertex Position: Left Occipital Anterior Cord Description-Baby A: 3 Vessels Cord Description Comment: short cord Amniotic Fluid: Bloody Quantitative Blood Loss: 1600 Delivery Outcome: Liveborn Complications: none Infant Transferred: Remains with Mother Note: FHTs 120s with doppler during first stage of labor. FHTs 120s with doppler in second stage. She used th etub and nitrous oxide for comfort with excellent effect. she was examined in the tub and was 8 cms dilated with an urge to push. She progressed to full dilation and began pushing. Second stage huddle was done. Spontaneous delivery of CARMEL infant delivered in position. Baby was placed on mother's abdomen and dried and stimulated. Spontaneous cry. Cord was clamped and cut by the baby's father as it was not pulsing after delivery. Pitocin 10 units IM was administered after transfer to bed prior to delivery of the placenta. The placenta delivered spontaneously and appears to by intact with a three vessel cord. A short cord was noted. There was heavy bright bleeding before and after the placenta was delivered. An IV was started and 30 mu Pitocin was infused rapidly (see hemorrhage notes). The placenta was noted to have very thin borders which extended out. The placenta was bilobed with succincuriate lobes connected by vessels and small lobes which appear to lack vessels connecting. It will be sent for pathology exam. The perineum was inspected and a small 1st degree laceration was repaired. The baby did breastfeed. After delivery, Mother and baby and father of the baby were stable and bonding well in the delivery room and there were no complications. Providers Nurse Cargo Tank Mechanic: Lainey Farmer Nurse: Reny Espinal Nurse: Petrona Rae Other: Rivera Hussein Hauldamen Labor/Delivery Information Steroids Given: None Reason Steroids Not Administered: N/A Group Beta Strep: Negative Antibiotics Administered: No Rubella Status: Immune Blood Type: O- Varicella Immunity: Immune Born En Route: No Maternal Complications: Hemorrhage Shoulder Dystocia: No Stages of Labor Infant Delivery Date-Baby A: 12/02/24 Infant Delivery Time-Baby A: 15:16 Placenta Delivery Date-Baby A: 12/02/24 Placenta Delivery Time-Baby A: 15:30 Labor-Stage 3 Duration: 14 minutes Placenta Status: Delivered Baby A Infant Gender: Male Gestational Status: Term (39-41.6 wks) Gestational Age in Weeks/Days: 39 Weeks and 5 Days Score-1 Minute Interval(Baby A) Heart Rate-1 minute: 100 BPM or Greater Respiratory Effort- 1 minute: Spontaneous/Strong Cry Muscle Tone-1 minute: Active Movement Reflex Response-1 minute: Prompt Response Color-1 minute: Bluish Hands or Feet Total Score-1 minute: 9 Score-5 Minute Interval(Baby A) Heart Rate- 5 minute: 100 BPM or Greater Respiratory Effort-5 minute: Spontaneous/Strong Cry Muscle Tone-5 minute: Active Movement Reflex Response-5 minute: Prompt Response Color-5 minute: Bluish Hands or Feet Total Score- 5 minute: 9 Interventions Repair of Laceration Type: Perineal, Laceration Extension: First Degree. Sponge Count Correct: No Sponges Placed in Vagina, Sharp Count Correct: Yes. Laceration Repair Note: perineal laceration repaired with two interrupted sutures under local anesthetic Hemorrrhage Note Note Note: Heavy bright bleeding after placenta was delivered. IV started and pitocin 30 units administered rapidly. Uterus was massaged and clots were extracted. cytotec 400 mcg PO was given. During perineal repair, she began bleeding heavily. Straight cathed for 250 cc clear urine and methergine 0.2 mg IM given. Her uterus was firm and I discussed her status with Dr Daigle at 1600. TXA was administered IV. She was assessed closely after that. Her uterus was firm and bl eeding was light. EBL was 1677. CBC was ordered for 2100. Vital signs were stable after event and Shasha was feeling welland bonding with her baby and . Hemorrhage Recognized Date Hemorrhage Recognized: 12/02/24 Time Hemorrhage Recognized: 15:30 Call for Help Date: 12/02/24 Time: 15:30 (3 additional nurses in the room at delivery) 2nd RN in Room Date: 12/02/24 Time: 15:15 2nd RN: Petrona Rae Provider in Room Date: 12/02/24 Time: 15:15 (In room at delivery) Provider: Lainey Farmer Bimanual Uterine Compression Date: 12/02/24 Time: 15:30 RN Sheriff'S Sergeant Notified Date: 12/02/24 Time: 15:35 RN Sheriff'S Sergeant on Floor Date: 12/02/24 Time: 15:35 Sheriff'S Sergeant: Vero Bridges QBL Scale in Room Date: 12/02/24 Time: 15:45 OB Emergency Cart at Bedside Date: 12/02/24 Time: 15:45 Shelby Catheter Urinary Catheter Date of Insertion: 12/02/24 Time of insertion: 15:40 Urinary Catheter Size: 12 Inserted by: Marleny Ray Provider in Room Date: 12/02/24 Time: 17:15 Provider: Nasrin Daigle Total Blood Loss for PPH Event Quantitative Blood Loss: 1,677 Labs Drawn Labs Drawn: No Transported to OR Date: 12/02/24 Time: 18:30
--- NOTE | 2024-12-02 19:37 | POCSPONT_PTH ---
PATIENT: Shasha Keating LOC: OBS U#:[id number] AGE/SX: 39/F ROOM: OBS.301 RE12/01/[address]: Lainey Farmer : 1985 BED: A DIS: 12/04/2024 SPEC #: [id number] RECD: 12/03/24 12:55 STATUS: VICENTA REQ #: [id number] KARL: 12/02/24 19:[address]: Lainey Farmer DEPT: Surgical Specimen RECD BY: Marycarmen Alcaraz ENTERED: 12/03/24 12:56 SP TYPE: POCSPSHAHID CARREON DR: Adolfo Myers Tissues: 1 - ,SPONTANEOUS Procedures: GROSS AND MICRO LEVEL 4 Comments: [id number]
--- NOTE | 2024-12-02 19:54 | ROE_ITS ---
Operative Note Operative Note PRE-OP DIAGNOSIS: hemorrhage POST-OP DIAGNOSIS: other (Retained placenta) PROCEDURE: Evacuation of uterine contents. Placement of Sandy. Repair of perineal laceration. SURGEON: Montse Gomes ASSISTING SURGEON: Nasrin Daigle BUSINESS CONTINUITY MANAGER: Natacha Calixto Refer to Anesthesia Record ESTIMATED BLOOD LOSS: 350 PATHOLOGY: other (Retained products of conception) COMPLICATIONS: None Patient was transported to: PACU Patient's condition: stable Indications: Pt is a 39yo P2 who underwent an uncomplicated vaginal delivery at 3:15pm. Immediately after delivering the placenta she experience a hemorrhage with a total EBL of 1600mls. She was given oral misoprostol, IM and IV pitocin and methergine followed by TXA. The bleeding stopped and the fundus was firm. She remained stable until about 5:45 when she began bleeding again and passed a large clot ~500ml. She continued to have further bleeding leading to a total QBL of 2322 prior to the OR. Due to continued bleeding the decision was made to go to the OR for uterine evacuation. The concerns and need for the procedure as well as what to expect was thoroughly explained to the patient. Risks were reviewed, consents signed and all questions were answered. Findings: Retained products of conception at the uterine fundus. After removal the uterus was firm with minimal bleeding. Sandy was in place with the balloon outside the cervix. Procedure Description: After informed consent was signed the patient was taken to the operating room and given General room air anesthesia. SCDs were placed on her legs. She was prepped and draped in the dorsal lithotomy position in the [facility]. A time out was performed. A mojica catheter was in place already with clear urine. Exam under anesthesia revealed clots visible at the vaginal intoitus. With fundal massage 250ml of clot was expressed from the uterus. Bleeding was minial after this. The cervix was noted at the intoitus. The internal os was initially only about 2-3cm dilated but the uterine cavity was accessed with gentle pressure. Products of conception were palpated at the fundus and removed from the uterus with a combination of manual removal, gentle curettage and ringed forceps. After removal there was minimal bleeding. The cervix was inspected for lacerations and none were noted. The perineal repair had come apart during the procedure so this was reapproximated with a [id number] 3-0 vicryl followed by one 4-0 vicryl on the skin. The Sandy was placed into the uterine cavity following the instructions. The balloon was filled with 100ml of saline and was confirmed to be outside the cervix. The fundus was palpated to be firm and there was good hemostasis. The patient was placed back into the supine position. She was moved to the stretcher and taken to the recovery room in stable condition. During the procedure the pt received: - 1U of PRBC with a second ready to hang. - 2g Ancef - IVF (see anesthesia notes for totals) Date of Procedure: 12/02/24
--- NOTE | 2024-12-02 19:57 | W.PM.OBNL1 ---
Date of service: 12/02/24 Time of Service: 13:30 Pelvic Exam Comments: exam deferred Contractions Monitor Mode: Palpation Contraction Frequency(min): every 3 Contraction Duration(sec): 60 Intensity: Strong Fetus A Monitor: Doppler Heart Rate Baseline: 120 FHR Rhythm: Regular Decelerations: None Amniotic Membrane Status: Ruptured Assessment and Plan Assessment and plan (1) Prolonged rupture of membranes: Status: Acute Assessment and plan: Comfort measures. Anticipate . Objective Abnormal lab results 12/01/24 12/02/24 Range/Units 22:40 18:35 WBC 21.80 H (4.4-10.8) 10^3/uL RBC 3.12 L (3.93-5.22) 10^6/uL Hgb 9.4 L D (11.2-15.7) g/dL Hct 28.1 L (36.0-46.0) % Anion Gap 11.6 H (3-11) mmol/L Alkaline Phosphatase 259 H (46-116) U/L Albumin 3.1 L (3.4-5.0) g/dL Crossmatch See Detail Temp Pulse Resp BP Pulse Ox 98.2 F 100 H 18 173/82 H 100 12/02/24 18:33 12/02/24 18:33 12/02/24 11:20 12/02/24 18:33 12/02/24 18:30 Laboratory Results WBC Cancelled 12/02/24 21:00 RBC Cancelled 12/02/24 21:00 Hgb Cancelled 12/02/24 21:00 Hct Cancelled 12/02/24 21:00 MCV Cancelled 12/02/24 21:00 MCH Cancelled 12/02/24 21:00 MCHC Cancelled 12/02/24 21:00 RDW Cancelled 12/02/24 21:00 Plt Count Cancelled 12/02/24 21:00 MPV Cancelled 12/02/24 21:00 PT 9.9 sec (9.1-11.1) 12/02/24 18:35 INR 1.0 (0.9-1.1) 12/02/24 18:35 APTT 22.7 sec (20.6-30.2) 12/02/24 18:35 Fibrinogen Cancelled 12/02/24 18:35 Sodium 139 mmol/L (136-145) 12/01/24 22:40 Potassium 3.9 mmol/L (3.5-5.1) 12/01/24 22:40 Chloride 104 mmol/L (98-107) 12/01/24 22:40 Carbon Dioxide 23.4 mmol/L (21.0-32.0) 12/01/24 22:40 Anion Gap 11.6 mmol/L (3-11) H 12/01/24 22:40 BUN 13 mg/dL (7-18) 12/01/24 22:40 Creatinine 0.6 mg/dL (0.55-1.02) 12/01/24 22:40 Est GFR (CKD-EPI 2020) 115.57 (mL/min/1.73m2) 12/01/24 22:40 Glucose 94 mg/dL (74-106) 12/01/24 22:40 Uric Acid 3.9 mg/dL (2.6-6.0) 12/01/24 22:40 Calcium 9.2 mg/dL (8.5-10.1) 12/01/24 22:40 Total Bilirubin 0.3 mg/dL (0.2-1.0) 12/01/24 22:40 AST 26 U/L (15-37) 12/01/24 22:40 ALT 25 U/L (14-59) 12/01/24 22:40 Alkaline Phosphatase 259 U/L (46-116) H 12/01/24 22:40 Total Protein 6.9 g/dL (6.4-8.2) 12/01/24 22:40 Albumin 3.1 g/dL (3.4-5.0) L 12/01/24 22:40 ABO/Rh O Negative 12/01/24 22:40 Antibody Screen NEGATIVE 12/01/24 22:40 Crossmatch See Detail 12/01/24 22:40 Subjective Patient Reports: New Complaints Interval history since last seen: At approximately 1200, Shasha's contractions became stronger and she requested to use the tub for comfort and it was filled. Results Hemoglobin/Hematocrit: Hgb Cancelled 12/02/24 21:00 Hct Cancelled 12/02/24 21:00 Abnormal Lab Findings: Abnormal Labs 12/01/24 12/02/24 22:40 18:35 WBC 21.80 H RBC 3.12 L Hgb 9.4 L D Hct 28.1 L Anion Gap 11.6 H Alkaline Phosphatase 259 H Albumin 3.1 L Crossmatch See Detail
--- NOTE | 2024-12-02 20:46 | W.ANESPOSTOP ---
Postoperative Evaluation Date, Time and Location Date Performed: 12/02/24 Time Performed: 20:46 Patient Location: PACU Vital Signs Most Recent Imported Vital Signs: Most Recent Vital Signs Temp Pulse Resp BP Pulse Ox 37.1 C 100 H 13 109/63 100 12/02/24 20:44 12/02/24 20:41 12/02/24 20:41 12/02/24 20:40 12/02/24 20:41 Pain Score Most Recent Pain Score: Most Recent Pain Score Pain Level [Bilateral Lower 4 12/02/24 11:20 Abdomen] Assessment Mental Status: Awake (Alert & Oriented to Patient Baseline) Airway and Respiratory Function: Patent airway with normal (patient baseline) respiratory exam Cardiovascular Function: Hemodynamically Unstable (See Explanation) (receiving blood) and Receiving care as an inpatient Hydration Status: Adequately Hydrated Nausea & Vomiting: Active Nausea or Vomiting Present Nausea and Vomiting Management: Nausea and vomiting active, being managed as an inpatient (no vomiting, feels like nausea might be building, being treated with zofran) Pain: Pain is tolerable per patient Peripheral Nerve Block: Patient did not receive a nerve block
[2024-12-02] MEDS: Ondansetron 4 MG/2 ML VIAL IVP (20:47)
[2024-12-02] MEDS: Normal Saline 1,000 ML 125 ML IV (21:15)
[2024-12-02 21:28] LABS: HGB 10.4 g/dL (11.2-15.7); MCH 30.1 pg (27.0-33.0); MCHC 34.7 % (32.0-36.0); MCV 87 fL (80-95); MPV 10.9 fL (8.0-11.0); Platelet Count 179 10^3/uL (130-400); RBC 3.46 10^6/uL (3.93-5.22); RDW 13.2 % (11.7-14.6); RDW-SD 41.7 fL; WBC 21.93 10^3/uL (4.4-10.8)
[2024-12-02 21:44] LABS: PTT Activated 22.3 sec (20.6-30.2); Prothrombin Time 9.9 sec (9.1-11.1)
[2024-12-02 21:45] LABS: ALT 19 U/L (14-59); AST 32 U/L (15-37); Albumin 2.1 g/dL (3.4-5.0); Alkaline Phosphatase 174 U/L (46-116); Anion Gap 6.9 mmol/L (3-11); BUN 7 mg/dL (7-18); Bilirubin, Total 0.6 mg/dL (0.2-1.0); CO2 22.1 mmol/L (21.0-32.0); CREATININE 0.7 mg/dL (0.55-1.02); Calcium 7.9 mg/dL (8.5-10.1); Chloride 106 mmol/L (98-107); Estimated GFR 111.36 (mL/min/1.73m2); Glucose 140 mg/dL (74-106); Potassium 4.2 mmol/L (3.5-5.1); Sodium 135 mmol/L (136-145); Total Protein 4.9 g/dL (6.4-8.2)
[2024-12-02] MEDS: CALCIUM GLUCONATE in NaCl 1 GM/50 ML BAG IVPB (22:02)
--- NOTE | 2024-12-02 22:27 | W.PM.OBPNV1 ---
Date of service: 12/02/24 Time of Service: 22:28 Assessment and Plan Assessment and plan (1) hemorrhage: Status: Acute Assessment and plan: Patient had a hemorrhage in the immediate period and then subsequent bleeding. She was taken the operating suite for exam under anesthesia. Uterine curettage, repair of perineal laceration, and placement of vagina. Intraoperatively, she had a 350 cc blood loss. She left the operating suite with a Shelby catheter draining hemoconcentrated urine, Johanne intrauterine with scant return, IV access with transfusion of packed red blood cells. The plan will be to transfuse 1 unit of FFP followed by 1/3 unit of packed red blood cells, followed by a second unit of fresh frozen plasma. She did receive intraoperative antibiotics. She will receive 1 g of calcium and normal saline IV piggyback. Her laboratory studies including coagulation studies are stable. She will have a repeat set of labs including blood count and CMP at 4 AM (2) Spontaneous vaginal delivery: Status: Acute Subjective Subjective Interval history: Patient is seen and examined this evening. Laboratory studies and vital signs reviewed. Set with the patient and her and had a 40-minute debrief of the events of the delivery, and her hemorrhage. We discussed the intraoperative findings, the intraoperative procedure, and to the care and management in this immediate timeframe. Patient feels well with good pain control. Her vital signs are stable. Her Johanne is in place with minimal output. Her urine output is appropriate Patient's Mood: Appropriate [place] baby status: Doing well, Nursing well and Strong Bonding Observed Exam Physical Exam Vital signs: Temp Pulse Resp BP Pulse Ox 97.9 F 93 H 15 98/52 L 97 12/02/24 20:46 12/02/24 20:46 12/02/24 20:46 12/02/24 20:45 12/02/24 20:46 Vital Signs Reviewed: Yes Notable Details: Vital signs are stable. Blood pressure appropriate. Results Hemoglobin/Hematocrit: Hgb 10.4 g/dL (11.2-15.7) L 12/02/24 21:19 Hct 30.0 % (36.0-46.0) L 12/02/24 21:19 Abnormal Lab Findings: Abnormal Labs 12/01/24 12/02/24 12/02/24 22:40 18:35 21:19 WBC 21.80 H 21.93 H RBC 3.12 L 3.46 L Hgb 9.4 L D 10.4 L Hct 28.1 L 30.0 L Sodium 135 L Anion Gap 11.6 H Glucose 140 H Calcium 7.9 L Alkaline Phosphatase 259 H 174 H Total Protein 4.9 L Albumin 3.1 L 2.1 L Crossmatch See Detail Hemorrrhage Note Hemorrhage Recognized Date Hemorrhage Recognized: 12/02/24 Time Hemorrhage Recognized: 15:30 Call for Help Date: 12/02/24 Time: 15:30 2nd RN in Room Date: 12/02/24 Time: 15:15 2nd RN: Petrona Rae Provider in Room Date: 12/02/24 Time: 15:15 Provider: Lainey Farmer Bimanual Uterine Compression Date: 12/02/24 Time: 15:30 RN Production Control Expert Notified Date: 12/02/24 Time: 15:35 RN Production Control Expert on Floor Date: 12/02/24 Time: 15:35 Production Control Expert: Vero Bridges QBL Scale in Room Date: 12/02/24 Time: 15:45 OB Emergency Cart at Bedside Date: 12/02/24 Time: 15:45 Shelby Catheter Urinary Catheter Date of Insertion: 12/02/24 Time of insertion: 15:40 Urinary Catheter Size: 12 Inserted by: Marleny Ray Provider in Room Date: 12/02/24 Time: 17:15 Provider: Nasrin Daigle Total Blood Loss for PPH Event Quantitative Blood Loss: 1,677 Labs Drawn Labs Drawn: No Transported to OR Date: 12/02/24 Time: 18:30
[2024-12-03] VITALS (11 sets, daily range): BP systolic 101–116; BP diastolic 66–82; PULSE 81–102; RESP 16–99; TEMP 36.3–36.7; O2SAT 98–100
--- NOTE | 2024-12-03 01:58 | W.PM.OBPNV1 ---
Date of service: 12/03/24 Time of Service: 01:58 Assessment and Plan Assessment and plan (1) hemorrhage: Status: Acute Assessment and plan: Patient has received 2 units of packed red blood cells and 1 unit of FFP at this point. With the unit of packed red blood cells, urticaria in the anterior chest wall noted. No chest pain, no shortness of breath. Itching only at this point. Transfusion stopped, blood in tubing sent to the lab. Transient interaction laboratory protocol ordered. Blood bank is notified. Benadryl ordered. Vitals remained stable. Will hold on transfusion at this point as hemodynamically stable. (2) Transfusion reaction: Status: Acute Subjective Subjective Interval history: Called to see patient regarding itchy rash on the anterior chest wall. This is new in onset, upon initiation of her 3 unit packed red blood cells. Vital signs remained stable. She has no shortness of breath or difficulty in breathing. Pain is well-controlled. [place] feeding status: Exclusively breast feeding Exam Physical Exam Vital signs: Temp Pulse Resp BP Pulse Ox 97.4 F L 81 16 116/75 98 12/03/24 01:47 12/03/24 01:47 12/03/24 01:47 12/03/24 01:47 12/03/24 01:47 Vital Signs Reviewed: Yes Results Hemoglobin/Hematocrit: Hgb 10.4 g/dL (11.2-15.7) L 12/02/24 21:19 Hct 30.0 % (36.0-46.0) L 12/02/24 21:19 Abnormal Lab Findings: Abnormal Labs 12/01/24 12/02/24 12/02/24 22:40 18:35 21:19 WBC 21.80 H 21.93 H RBC 3.12 L 3.46 L Hgb 9.4 L D 10.4 L Hct 28.1 L 30.0 L Sodium 135 L Anion Gap 11.6 H Glucose 140 H Calcium 7.9 L Alkaline Phosphatase 259 H 174 H Total Protein 4.9 L Albumin 3.1 L 2.1 L Crossmatch See Detail Hemorrrhage Note Hemorrhage Recognized Date Hemorrhage Recognized: 12/02/24 Time Hemorrhage Recognized: 15:30 Call for Help Date: 12/02/24 Time: 15:30 2nd RN in Room Date: 12/02/24 Time: 15:15 2nd RN: Petrona Rae Provider in Room Date: 12/02/24 Time: 15:15 Provider: Lainey Farmer Bimanual Uterine Compression Date: 12/02/24 Time: 15:30 RN Waste Minimization Technician Notified Date: 12/02/24 Time: 15:35 RN Waste Minimization Technician on Floor Date: 12/02/24 Time: 15:35 Waste Minimization Technician: Vero Bridges QBL Scale in Room Date: 12/02/24 Time: 15:45 OB Emergency Cart at Bedside Date: 12/02/24 Time: 15:45 Shelby Catheter Urinary Catheter Date of Insertion: 12/02/24 Time of insertion: 15:40 Urinary Catheter Size: 12 Inserted by: Marleny Ray Provider in Room Date: 12/02/24 Time: 17:15 Provider: Nasrin Daigle Total Blood Loss for PPH Event Quantitative Blood Loss: 2,682 Labs Drawn Labs Drawn: No Transported to OR Date: 12/02/24 Time: 18:30
[2024-12-03] MEDS: diphenhydrAMINE 50 MG/ML VIAL 25 MG IVP (02:23)
[2024-12-03] MEDS: Normal Saline Flush 10 ML SYR IVP ×2 (02:23→10:54)
[2024-12-03 03:36] LABS: Abs Immature Grans 0.17 10^3/uL (0.0-0.06); Absolute Basophil Count 0.06 10^3/uL (0.0-0.2); Absolute Lymphocyte Count 1.44 10^3/uL (1.2-3.4); Absolute Monocyte Count 1.59 10^3/uL (0.1-0.8); Absolute Neutrophil Count 15.26 10^3/uL (1.2-6.7); Basophils % 0.3 %; HCT 26.1 % (36.0-46.0); HGB 9.2 g/dL (11.2-15.7); Immature Grans % 0.9 %; Lymphocytes % 7.8 %; MCH 30.1 pg (27.0-33.0); MCHC 35.2 % (32.0-36.0); MCV 85 fL (80-95); MPV 11.3 fL (8.0-11.0); Monocytes % 8.6 %; Neutrophils % 82.4 %; Platelet Count 187 10^3/uL (130-400); RBC 3.06 10^6/uL (3.93-5.22); RDW 14.4 % (11.7-14.6); RDW-SD 44.6 fL; WBC 18.52 10^3/uL (4.4-10.8)
--- NOTE | 2024-12-03 06:22 | W.PM.OBPNV1 ---
Date of service: 12/03/24 Time of Service: : Assessment and Plan Assessment and plan (1) Spontaneous vaginal delivery: Status: Acute Assessment and plan: That is post vaginal with hemorrhage. (2) hemorrhage: Status: Acute Assessment and plan: Patient had a hemorrhage and received IM Pitocin, followed by Methergine, followed by oral misoprostol. She had a subsequent episode of bleeding and was taken to the operating suite for exam under anesthesia, uterine curettage for retained products, and placement of a Johanne. Intraoperatively she also received Pitocin, and had received 1 dose of TXA. Her bleeding significantly diminished. She received a total of 2 units of packed red blood cells, 1 g of calcium gluconate, 1 unit of fresh frozen plasma. Upon transfusion of her third unit of packed cells, she had urticaria, and the transfusion was stopped. Transfusion reaction labs are negative. Okay to transfuse again. AM CBC is pending. Will plan on decreasing the suction for the Johanne this morning, followed by removal. If the uterus remained stable, without significant bleeding, patient may eat, ambulate, continue to monitor closely. Subjective Subjective Interval history: Patient seen and examined this morning. Feeling much better. No longer has an urticarial rash. Transfusion reaction blood work is negative. Okay to transfuse if necessary. At this point, hemodynamically stable. Brisk urine output. Vital signs are stable. Bleeding scant at best. baby status: Doing well, Nursing well and Strong Bonding Observed Exam Physical Exam Vital signs: Temp Pulse Resp BP Pulse Ox 97.4 F L 96 H 98 H 115/66 99 12/03/24 06:09 12/03/24 06:09 12/03/24 06:09 12/03/24 06:09 12/03/24 04:33 Vital Signs Reviewed: Yes Constitutional Constitutional: no acute distress HEENT Exam HEENT Exam: Normal Respiratory Exam Respiratory Exam: Normal Cardiovascular Exam Cardiovascular Exam: Normal Abdominal Exam Abdomen: Tender Fundal Exam Fundus: Below Umbilicus and Firm Results Hemoglobin/Hematocrit: Hgb 9.2 g/dL (11.2-15.7) L 12/03/24 02:08 Hct 26.1 % (36.0-46.0) L 12/03/24 02:08 Abnormal Lab Findings: Abnormal Labs 12/01/24 12/02/24 12/02/24 22:40 18:35 21:19 WBC 21.80 H 21.93 H RBC 3.12 L 3.46 L Hgb 9.4 L D 10.4 L Hct 28.1 L 30.0 L MPV Absolute Neutrophils Absolute Monocytes Sodium 135 L Anion Gap 11.6 H Glucose 140 H Calcium 7.9 L Alkaline Phosphatase 259 H 174 H Total Protein 4.9 L Albumin 3.1 L 2.1 L Crossmatch See Detail 12/03/24 02:08 WBC 18.52 H RBC 3.06 L Hgb 9.2 L Hct 26.1 L MPV 11.3 H Absolute Neutrophils 15.26 H Absolute Monocytes 1.59 H Sodium Anion Gap Glucose Calcium Alkaline Phosphatase Total Protein Albumin Crossmatch Hemorrrhage Note Hemorrhage Recognized Date Hemorrhage Recognized: 12/02/24 Time Hemorrhage Recognized: 15:30 Call for Help Date: 12/02/24 Time: 15:30 2nd RN in Room Date: 12/02/24 Time: 15:15 2nd RN: Petrona Rae Provider in Room Date: 12/02/24 Time: 15:15 Provider: Lainey Farmer Bimanual Uterine Compression Date: 12/02/24 Time: 15:30 RN Vehicle Return Associate Notified Date: 12/02/24 Time: 15:35 RN Vehicle Return Associate on Floor Date: 12/02/24 Time: 15:35 Vehicle Return Associate: Vero MURDOCK Scale in Room Date: 12/02/24 Time: 15:45 OB Emergency Cart at Bedside Date: 12/02/24 Time: 15:45 Shelby Catheter Urinary Catheter Date of Insertion: 12/02/24 Time of insertion: 15:40 Urinary Catheter Size: 12 Inserted by: Marleny Ray Provider in Room Date: 12/02/24 Time: 17:15 Provider: Nasrin Daigle Total Blood Loss for PPH Event Quantitative Blood Loss: 2,682 Labs Drawn Labs Drawn: No Transported to OR Date: 12/02/24 Time: 18:30
[2024-12-03 06:54] LABS: Abs Immature Grans 0.11 10^3/uL (0.0-0.06); Absolute Basophil Count 0.02 10^3/uL (0.0-0.2); Absolute Lymphocyte Count 1.38 10^3/uL (1.2-3.4); Absolute Monocyte Count 1.45 10^3/uL (0.1-0.8); Absolute Neutrophil Count 12.92 10^3/uL (1.2-6.7); Basophils % 0.1 %; Eosinophils % 0.1 %; HGB 8.4 g/dL (11.2-15.7); Immature Grans % 0.7 %; Lymphocytes % 8.7 %; MCH 28.9 pg (27.0-33.0); MCHC 33.6 % (32.0-36.0); MCV 86 fL (80-95); MPV 10.8 fL (8.0-11.0); Monocytes % 9.1 %; Neutrophils % 81.3 %; Platelet Count 184 10^3/uL (130-400); RBC 2.91 10^6/uL (3.93-5.22); RDW 14.5 % (11.7-14.6); RDW-SD 45.3 fL; WBC 15.89 10^3/uL (4.4-10.8)
[2024-12-03 07:18] LABS: Absolute Eosinophil Count 0.02 10^3/uL (0.0-0.7)
--- NOTE | 2024-12-03 08:13 | W.PM.OBPNV1 ---
Date of service: 12/03/24 Time of Service: 08:14 Assessment and Plan Assessment and plan (1) hemorrhage: Status: Acute Assessment and plan: Status post hemorrhage with return to the OR for exam under anesthesia, removal of placental fragments and placement of a Johanne device. Her J-tube was removed this morning. Morning hemoglobin is 8.4. She received a total of 2 units of packed red blood cells, 1 unit of fresh frozen plasma, 100 mg of calcium. We will recheck his CBC in the morning. Today, if her bleeding remained stable, she can eat, ambulate, and Shelby catheter may be removed. If she bleeds again, she will return to the OR for a hysterectomy. This was discussed at length with the patient and the team today Subjective Subjective Interval history: Patient seen. Doing well. She had off suction for 1 hour. 100 cc of normal saline removed from the intravaginal balloon. With gentle downward traction, the Johanne was removed without difficulty. Uterus remains firm. Bleeding is scant at this point. Thus far, she has received a total of 2 units of packed red blood cells, 1 unit of FFP, 100 mg of calcium gluconate. Her morning hemoglobin is 8.4 with very stable vital signs and brisk diuresis. At this point, I do not feel it is warranted to transfuse 1/3 unit. If her bleeding remains stable, we will advance her activity, diet, and recheck CBC in the a.m. Exam Physical Exam Vital signs: Temp Pulse Resp BP Pulse Ox 97.4 F L 96 H 98 H 115/66 99 12/03/24 06:09 12/03/24 06:09 12/03/24 06:09 12/03/24 06:09 12/03/24 04:33 Results Hemoglobin/Hematocrit: Hgb 8.4 g/dL (11.2-15.7) L 12/03/24 06:10 Hct 25.0 % (36.0-46.0) L 12/03/24 06:10 Abnormal Lab Findings: Abnormal Labs 12/01/24 12/02/24 12/02/24 22:40 18:35 21:19 WBC 21.80 H 21.93 H RBC 3.12 L 3.46 L Hgb 9.4 L D 10.4 L Hct 28.1 L 30.0 L MPV Absolute Neutrophils Absolute Monocytes Sodium 135 L Anion Gap 11.6 H Glucose 140 H Calcium 7.9 L Alkaline Phosphatase 259 H 174 H Total Protein 4.9 L Albumin 3.1 L 2.1 L Crossmatch See Detail 12/03/24 12/03/24 02:08 06:10 WBC 18.52 H 15.89 H RBC 3.06 L 2.91 L Hgb 9.2 L 8.4 L Hct 26.1 L 25.0 L MPV 11.3 H Absolute Neutrophils 15.26 H 12.92 H Absolute Monocytes 1.59 H 1.45 H Sodium Anion Gap Glucose Calcium Alkaline Phosphatase Total Protein Albumin Crossmatch Hemorrrhage Note Hemorrhage Recognized Date Hemorrhage Recognized: 12/02/24 Time Hemorrhage Recognized: 15:30 Call for Help Date: 12/02/24 Time: 15:30 2nd RN in Room Date: 12/02/24 Time: 15:15 2nd RN: Petrona Rae Provider in Room Date: 12/02/24 Time: 15:15 Provider: Lainey Farmer Bimanual Uterine Compression Date: 12/02/24 Time: 15:30 RN Child Nutrition Manager Notified Date: 12/02/24 Time: 15:35 RN Child Nutrition Manager on Floor Date: 12/02/24 Time: 15:35 Child Nutrition Manager: Vero MURDOCK Scale in Room Date: 12/02/24 Time: 15:45 OB Emergency Cart at Bedside Date: 12/02/24 Time: 15:45 Shelby Catheter Urinary Catheter Date of Insertion: 12/02/24 Time of insertion: 15:40 Urinary Catheter Size: 12 Inserted by: Marleny Ray Provider in Room Date: 12/02/24 Time: 17:15 Provider: Nasrin Daigle Total Blood Loss for PPH Event Quantitative Blood Loss: 2,682 Labs Drawn Labs Drawn: No Transported to OR Date: 12/02/24 Time: 18:30
[2024-12-03 08:16] LABS: Fibrinogen (Stat) (Littleton) 287 mg/dL (208-434)
[2024-12-03] MEDS: Levothyroxine 175 MCG TAB PO (10:54)
[2024-12-03] MEDS: Ibuprofen 600 MG TAB PO (13:00)
[2024-12-03] MEDS: Acetaminophen 325 MG TAB 650 MG PO (17:09)
--- NOTE | 2024-12-03 17:57 | W.PM.OBPNV1 ---
Date of service: 12/03/24 Time of Service: 17:58 Assessment and Plan Assessment and plan (1) hemorrhage: Status: Acute Assessment and plan: 39yo P3 now PPD#1 s/p NVD and subsequent pph with 2600 EBL, uterine evacuation of retained placenta and 2U prbc +1U FFP. She had a Sandy in place overnight, which was removed this am. Hb is appropriate. She has advanced today with minimal bleeding and no significant concerns. Will plan for repeat CBC in the am with possible d/c later tomorrow or the following am. Many questions were answered. Subjective Subjective Narrative: Pt is feeling much better. She has been up once and her mojica catheter was removed. She is hydrating and has not urinated yet since removed ~4hrs ago but thinks she'll be able to go soon. She has had minimal bleeding throughout the day. She has been able to eat normally without n/v. She is nursing her baby without difficulty. Exam Physical Exam Vital signs: Temp Pulse Resp BP Pulse Ox 98.0 F 102 H 16 112/70 99 12/03/24 13:00 12/03/24 13:00 12/03/24 08:00 12/03/24 13:00 12/03/24 08:00 Vital Signs Reviewed: Yes Constitutional Constitutional: no acute distress and cooperative Detailed HEENT Exam Head: Present normocephalic and atraumatic Respiratory Exam Respiratory Exam: Normal Abdominal Exam Abdomen: Tender (mildly) Fundal Exam Fundus: Below Umbilicus and Firm Exam Comments: Minimal blood on a pad that had been there 2-3hrs. Detailed Neurological Exam Neurological: Present alert, oriented X3 and CN II-XII intact Results Hemoglobin/Hematocrit: Hgb 8.4 g/dL (11.2-15.7) L 12/03/24 06:10 Hct 25.0 % (36.0-46.0) L 12/03/24 06:10 Abnormal Lab Findings: Abnormal Labs 12/01/24 12/02/24 12/02/24 22:40 18:35 21:19 WBC 21.80 H 21.93 H RBC 3.12 L 3.46 L Hgb 9.4 L D 10.4 L Hct 28.1 L 30.0 L MPV Absolute Neutrophils Absolute Monocytes Sodium 135 L Anion Gap 11.6 H Glucose 140 H Calcium 7.9 L Alkaline Phosphatase 259 H 174 H Total Protein 4.9 L Albumin 3.1 L 2.1 L Crossmatch See Detail 12/03/24 12/03/24 02:08 06:10 WBC 18.52 H 15.89 H RBC 3.06 L 2.91 L Hgb 9.2 L 8.4 L Hct 26.1 L 25.0 L MPV 11.3 H Absolute Neutrophils 15.26 H 12.92 H Absolute Monocytes 1.59 H 1.45 H Sodium Anion Gap Glucose Calcium Alkaline Phosphatase Total Protein Albumin Crossmatch Hemorrrhage Note Hemorrhage Recognized Date Hemorrhage Recognized: 12/02/24 Time Hemorrhage Recognized: 15:30 Call for Help Date: 12/02/24 Time: 15:30 2nd RN in Room Date: 12/02/24 Time: 15:15 2nd RN: Petrona Rae Provider in Room Date: 12/02/24 Time: 15:15 Provider: Lainey Farmer Bimanual Uterine Compression Date: 12/02/24 Time: 15:30 RN Product Support Representative Notified Date: 12/02/24 Time: 15:35 RN Product Support Representative on Floor Date: 12/02/24 Time: 15:35 Product Support Representative: Vero Bridges QBL Scale in Room Date: 12/02/24 Time: 15:45 OB Emergency Cart at Bedside Date: 12/02/24 Time: 15:45 Mojica Catheter Urinary Catheter Date of Insertion: 12/02/24 Time of insertion: 15:40 Urinary Catheter Size: 12 Inserted by: Marleny Ray Provider in Room Date: 12/02/24 Time: 17:15 Provider: Nasrin Daigle Total Blood Loss for PPH Event Quantitative Blood Loss: 2,682 Labs Drawn Labs Drawn: No Transported to OR Date: 12/02/24 Time: 18:30
[2024-12-04] MEDS: Dibucaine 1% 28 GM TUBE TP (03:22)
[2024-12-04] MEDS: Acetaminophen 325 MG TAB 650 MG PO ×2 (05:50→10:03)
[2024-12-04] MEDS: Levothyroxine 175 MCG TAB PO (05:50)
[2024-12-04] MEDS: Ibuprofen 600 MG TAB PO ×2 (05:50→12:09)
[2024-12-04 06:39] LABS: HCT 23.7 % (36.0-46.0); HGB 7.9 g/dL (11.2-15.7); MCH 29.5 pg (27.0-33.0); MCHC 33.3 % (32.0-36.0); MCV 88 fL (80-95); MPV 10.8 fL (8.0-11.0); Platelet Count 197 10^3/uL (130-400); RBC 2.68 10^6/uL (3.93-5.22); RDW 14.6 % (11.7-14.6); RDW-SD 47.3 fL; WBC 12.97 10^3/uL (4.4-10.8)
[2024-12-04 10:00] VITALS: BP 118/72; PULSE 90; RESP 16; TEMP 36.4
[2024-12-04 10:03] VITALS: TEMP 36.4
--- NOTE | 2024-12-04 12:53 | DSE_ITS ---
Date of service: 12/04/24 Time of Service: 12:53 Discharge Plan Disposition Patient Disposition: Home Condition: Good Discharge Details Reason For Visit: Term Labor Admit Date/Time: 12/01/24 22:22 Admit Provider: Lainey Farmer Attending Provider: Lainey Farmer [facility]: 39-year-old -0-0-2 ( x 2) presented to labor and delivery on December 01, 2024 at 39 weeks as dated by LMP equal to 6-week ultrasound for concerns surrounding rupture of membranes to clear fluid and labor. Her was noted to be complicated by advanced maternal age, Rh- status, hypothyroidism, history of hemorrhage and insulin resistance. Upon presentation to the labor and delivery unit she was found to be 2 cm dilated; after some time she was induced with oral misoprostol and ultimately received an epidural. On 12/02/2024 she underwent a vaginal delivery where she was noted to have a bilobed placenta; a first-degree laceration was repaired. She was noted to have a 1600 cc blood loss at the time of delivery. At the time of delivery, she did receive Methergine as well as Pitocin and p.o. Cytotec. Given the persistence of her bleeding she also received trans exam if acid. Her bleeding was ultimately controlled on remained reassuring until approximately 2 hours later when she began to have another bout of heavy bleeding. Due to the persistence of her bleeding, it was decided to take her to the OR where she underwent a dilatation and curettage. A large collection of what was thought to be placental tissue was evacuated from the uterus at the time and a Sandy was placed. Her total EBL was calculated at approximately 2700 cc. While in the OR the patient was initiated on 2 units of packed red blood cells, and she also ultimately received FFP as well. Her bleeding stabilized, and the jaded was removed the following day. Her bleeding remained stable. The patient was asymptomatic, and her hemoglobin stabilized at about 8. She was initiated on p.o. iron and did well. Today, the patient is found to be doing well. She is found resting comfortably in her bed nursing her child without issue. She denies any lightheadedness, dizziness, nausea, wooziness. Her lochia has been scant and appropriate, and she denies any further clots. Her pain is well-controlled with minimal medications. She is ambulating, urinating, and eating all without issue. She has not yet had a bowel movement. We had a long discussion regarding IV iron versus p.o. iron; patient has a very strong desire to get home and is a reasonable candidate for p.o. iron. She is still contemplating her contraceptive options though she is favoring an IUD. We discussed the importance of avoiding inserting anything vaginally as well as submersion such as baths for at least 2 weeks. We discussed having a low threshold for returning for immediate medical evaluation in the event of concerning signs or symptoms. She will be seen in the office within 1 week. Home Meds and New Rx's Prescriptions: New docusate sodium [Colace] 100 mg Capsule 100 mg PO BID PRN PRN10 Days Qty: 20 0RF ibuprofen 600 mg Tablet 600 mg PO Q6H PRN PRNQty: 30 0RF Accrufer 30 mg capsule 30 mg PO BID 30 Days Qty: 60 0RF Dermoplast (with menthol) 20-0.5 % aerosol 1 spray topical TID PRNQty: 85 1RF ibuprofen 600 mg tablet 600 mg PO Q6H 10 Days Qty: 40 0RF Continued PNV cmb#95-ferrous fumarate-FA [] 1 EACH tablet 1 ea PO DAILY levothyroxine 175 mcg tablet See Rx Instructions .ROUTE .COMPLEX Qty: 30 4RF Dose Instruction: TAKE ONE TABLET BY MOUTH EVERY DAY Rx Instructions: TAKE ONE TABLET BY MOUTH EVERY DAY Discontinued aspirin 81 mg tablet,delayed release (DR/EC) 81 mg PO DAILY Qty: 90 4RF Rx Instructions: one tab daily alternating with two tabs every other day Discharge Instructions Instructions: What to Watch for After You Have a Baby, Normal Bleeding After Having a Baby, Taking Care of Yourself After You Have a Baby, Depression during and after - Discharge instructions Stand Alone Forms: BC Instructions, BC Post Vaginal Deliver Referrals: Natacha Calixto DO [OSTEOPATHIC DOCTOR] - Activity:: Pelvic rest Equipment/Supplies:: No Equipment Needed Diet:: Normal Diet Discharge Orders Discharge Orders: Discharge Order (Routine); Ordered 12/04/24 Ordered By: Natacha Calixto Discharge Data Discharge Date/Time-TO BE ENTERED AT DEPARTURE: 12/04/24 16:55 OB:DS Summary Summary Vaginal Delivery Method: Spontaneaous Episiotomy Description: None Laceration Description: Perineal Laceration Extension: First Degree Contraception Discussed Contraception Discussed: Yes, [place] Gender-Baby A: Male weight: 7 lb 13.752 oz Status at Discharge Functional status at discharge: independent ambulation Overall status at discharge: patient is progressing back to baseline Mental Status: mental status grossly normal Speech and Movement: speech and movement normal Mood: congruent mood Affect: normal affect Quality:SDOH Health Related Social Needs: No Data to Display Exam Physical Exam Vital signs: Temp Pulse Resp BP Pulse Ox 97.5 F L 90 16 118/72 99 12/04/24 10:03 12/04/24 10:00 12/04/24 10:00 12/04/24 10:00 12/03/24 08:00 Constitutional Comments: General: Well nourished female in no immediate distress HEENT: Normocephalic Pulm: No overt respiratory distress Abd: Soft, non-distended, non-tender; fundus firm and low Ext: Trace edema noted equally bilaterally Psyche: Appropriate affect [facility] History (Updated 12/05/24 @ 00:01 by MARCY AVALOS) Transfusion reaction Mild symptomatology. Hives. 12/03/2024. Transfusion reaction workup performed. Spontaneous vaginal delivery hemorrhage Prolonged rupture of membranes Rh negative status during Acquired hypothyroidism (07/30/13) (+)TPO ABs; checked TSH, free T4 09/30/14, dose unchanged. Migraine aura occurring with and without headache Social History Smoking/Tobacco Use Status: Former Tobacco Use Smoking risk assessment performed?: Yes Housing: house Female Reproductive History Menstrual control method: progestin IUCD History History 3 Para 2 Hx # Term Pregnancies 2 Multiple births 0 Hx # Pregnancies 0 Ectopic pregnancies 0 AB induced 0 Hx Number of Living Children 2 AB spontaneous 0 Past Pregnancies Del. Date GA/Weeks # Preg Succ Route Wgt Sex Labor Lgth Anesth esia Location Prov Complic 06/13/12 40 No Yes vaginal 7 lb [address] Ty burnham @ [facility] 01/13/15 40 No Yes vaginal 8 lb [address] Ramirez @ [facility] Delivery Date: 06/13/12 Last Updated by: Esthela Crawley Nml , no meds [place] Delivery Date: 01/13/15 Last Updated by: Lainey Farmer CNM Rapid labor, EBL 250 cc and late PPH of 500 cc per delivery note, Controlled with IV Pitocin and expression of clots and emptying her bladder. no transfusion needed, [place] DS: Data Vitals/I&O Vitals and I&O: Vital Signs Temperature 97.5 F L 12/04/24 10:03 Temperature Source Forehead 12/04/24 10:00 Pulse 90 12/04/24 10:00 Pulse Rhythm Regular 12/03/24 10:00 Pulse 92 H 12/02/24 20:46 Respiratory Rate 16 12/04/24 10:00 Respiratory Depth Normal 12/03/24 10:00 Blood Pressure 118/72 12/04/24 10:00 Blood Pressure Mean 87 12/04/24 10:00 Pulse Oximetry 99 12/03/24 08:00 Respiratory End-tidal CO2 33 12/02/24 20:46 Oxygen Delivery Method Room Air 12/03/24 01:47 Oxygen Flow Rate 0 12/03/24 01:47 Pain Level 2 12/04/24 12:09 Comment pt requested to RN not to wake until she calls 12/03/24 22:00 Intake & Output 12/03/24 12/04/24 12/04/24 23:59 11:59 23:59 Output Total 1350 / 4300 500 / 500 Balance -1350 / -3500 -500 / -500 Output: Urine 1350 / 4300 500 / 500 Other: Urine Color Pale Urine Appearance Clear Data Completed and Pending Labs on day of discharge: Labs from last 24 hours 12/04/24 12/03/24 12/01/24 06:28 02:08 22:40 WBC 12.97 H RBC 2.68 L Hgb 7.9 L Hct 23.7 L MCV 88 MCH 29.5 MCHC 33.3 RDW 14.6 Plt Count 197 MPV 10.8 ABO/Rh O Negative Antibody Screen NEGATIVE LARRY, Polyspecific Not Applicable Crossmatch See Detail Pre-Trans LARRY Negative Post-Trans LARRY Negative
[2024-12-04] MEDS: Ferrous Sulfate 325 MG TAB PO (14:08)
== END 2024-12-04 16:55 | disposition home or self-care (01) | DRG 768 ==
PROVIDERS: Obstetrics & Gynecology; Admitting Provider Advanced Practice Midwife; PCP Student in an Organized Health Care Education/Training Program; Visit Provider Advanced Practice Midwife
PROC: 0W3R7ZZ Control Bleeding in Genitourinary Tract, Via Natural or Artificial Opening (ICD-10-PCS; CPT 59160; principal; 2024-12-02 18:30)
DX: O42.92 Full-term premature rupture of membranes, unspecified as to length of time between rupture and onset of labor (principal); Z37.0 Single live birth; O72.2 Delayed and secondary postpartum hemorrhage; O99.354 Diseases of the nervous system complicating childbirth; O99.284 Endocrine, nutritional and metabolic diseases complicating childbirth; Z3A.39 39 weeks gestation of pregnancy; O70.0 First degree perineal laceration during delivery; O43.193 Other malformation of placenta, third trimester; E03.9 Hypothyroidism, unspecified; O26.893 Other specified pregnancy related conditions, third trimester; Z67.91 Unspecified blood type, Rh negative; G43.109 Migraine with aura, not intractable, without status migrainosus; T80.89XA Other complications following infusion, transfusion and therapeutic injection, initial encounter; D69.51 Posttransfusion purpura
CPT/HCPCS: 59160; 36415; 36430; 80053; 85027; 85384; 86850; 86900; 86901; 86920; 88305; 84550; 85025; 85610; 85730; 86880; 88307; J0613; J1200; J2003; J2210; J2250; J2371; J2405; J2590; J2704; J3010; J3490; P9016; P9059

== ENCOUNTER 2025-01-11 12:58 | Outpatient (CLI) | payer BC, SELFPAY ==
[2025-01-11 11:09] LABS: HCT 37.6 % (36.0-46.0); HGB 12.1 g/dL (11.2-15.7); MCH 28.7 pg (27.0-33.0); MCHC 32.2 % (32.0-36.0); MCV 89 fL (80-95); MPV 10.3 fL (8.0-11.0); Platelet Count 299 10^3/uL (130-400); RBC 4.22 10^6/uL (3.93-5.22); RDW 12.5 % (11.7-14.6); RDW-SD 41.1 fL; WBC 5.21 10^3/uL (4.4-10.8)
[2025-01-11 11:51] LABS: TSH (W/Ref FT4) 0.03 uIU/mL (0.36-3.74)
[2025-01-11 12:15] LABS: FREE T4 1.58 ng/dL (0.76-1.46)
== END 2025-01-11 12:59 | disposition home or self-care (01) ==
LOC: LBO 12:59
PROVIDERS: PCP Student in an Organized Health Care Education/Training Program; Visit Provider Advanced Practice Midwife
DX: Z87.59 Personal history of other complications of pregnancy, childbirth and the puerperium (principal); E03.9 Hypothyroidism, unspecified
CPT/HCPCS: 36415; 85027; 84439; 84443

== ENCOUNTER 2025-02-03 01:54 | Outpatient (CLI) | payer BC, SELFPAY ==
--- NOTE | 2025-02-03 12:20 | DI.MAMMO_ITS ---
Exam(s) MAMMO SCREENING EXAM: MAMMO SCREENING CLINICAL HISTORY: screening,Z12.39 TECHNIQUE: Bilateral full field digital CC and MLO mammographic images were obtained with 3D tomosynthesis and utilizing computer aided detection (CAD). COMPARISON: This is a baseline examination. FINDINGS: Masses/Architectural Distortion: No suspicious masses or areas of architectural distortion are present. There is an asymmetric density in the posterior upper right breast on the MLO view 14 cm from the nipple. It may represent fibroglandular tissue but a spot compression views requested for further e valuation. Microcalcifications: No suspicious pleomorphic-type are seen. Skin Thickening/Nipple Retraction: None. IMPRESSION: 1. Focal asymmetry in the upper posterior right breast on the MLO view. 2. This area should be further evaluated with a spot compression view. Ultrasound may be indicated at that time. BI-RADS Category 0 - Incomplete: Need additional imaging evaluation Breast Density - Category D - The breast are extremely dense, which lowers the sensitivity of the mammography. Breast density Category C or D implies that the patient has dense breast tissue. Dense breast tissue can make it harder to find cancer on a mammogram. Dense breast tissue is also associated with an increased risk of breast cancer. This information about the result of the mammogram report was provided to the patient to raise their awareness. Use this report when you speak with the patient about their risks for breast cancer, which includes their family history. At that time, you may recommend additional screening tests (Ultrasound or MRI) as these tests may add significant information. A negative radiographic report should not delay biopsy if a dominant or clinically suspicious mass is present. Up to ten percent of cancers are not identified on mammography. A negative report may reinforce clinical impression. Adenosis and dense breasts may obscure an underlying neoplasm. False positive reports average 6 to 10%. Patient will receive a letter notifying them of these results.
== END 2025-02-03 02:14 ==
LOC: DI 01:54
PROVIDERS: PCP Student in an Organized Health Care Education/Training Program; Visit Provider Advanced Practice Midwife
DX: Z12.31 Encounter for screening mammogram for malignant neoplasm of breast (principal); R92.343 Mammographic extreme density, bilateral breasts
CPT/HCPCS: 77063; 77067

== ENCOUNTER 2025-02-05 00:13 | Outpatient (CLI) | payer BC, SELFPAY ==
--- NOTE | 2025-02-05 | DI.US_ITS ---
Exam(s) MAMMO SCREEN CALL BACK UNI US BREAST RT LIMITED EXAM: MAMMO SCREEN CALL BACK UNI CLINICAL HISTORY: F/U MAMMO, FOCAL ASYMMETRY UPPER POST RT BREAST,R92.8,? FIBROGLANDULAR. TECHNIQUE: Axillary tail view and mediolateral oblique spot compression digital Mammography views of the right breast with Tomosynthesis and right breast ultrasound. COMPARISON: [facility] MAMMO SCREENING from 02/03/2025 FINDINGS: Mammography/Tomosynthesis: Masses: None seen. The area of asymmetric density in the posterior breast questioned on the screening exam disperses on the additional views. The findings are consistent with normal tissue overlying the pectoral muscle. Architectural Distortion: None seen. Microcalcifictions: No suspicious pleomorphic-type are seen. Skin Thickening/Nipple Retraction: None. Right breast US: Echotexture: Normal appearance of the glandular tissue. Shadowing: No suspicious foci. Cyst: None. Solid lesions: None seen. Ductal dilation: None. IMPRESSION: 1. No evidence of malignancy is noted. 2. Unless there is more urgent need, follow-up screening mammography is recommended, as per [employer] guidelines. 3. The findings were discussed with the patient on the date of the examination. BI-RADS Category 1 - Negative Breast Density - Category D - The breast are extremely dense, which lowers the sensitivity of the mammography. Breast density Category C or D implies that the patient has dense breast tissue. Dense breast tissue can make it harder to find cancer on a mammogram. Dense breast tissue is also associated with an increased risk of breast cancer. This information about the result of the mammogram report was provided to the patient to raise their awareness. Use this report when you speak with the patient about their risks for breast cancer, which includes their family history. At that time, you may recommend additional screening tests (Ultrasound or MRI) as these tests may add significant information. A negative radiographic report should not delay biopsy if a dominant or clinically suspicious mass is present. Up to ten percent of cancers are not identified on mammography. A negative report may reinforce clinical impression. Adenosis and dense breasts may obscure an underlying neoplasm. False positive reports average 6 to 10%. Patient will receive a letter notifying them of these results.
== END 2025-02-05 00:33 ==
LOC: DI 00:14
PROVIDERS: PCP Student in an Organized Health Care Education/Training Program; Visit Provider Advanced Practice Midwife
DX: Z12.31 Encounter for screening mammogram for malignant neoplasm of breast (principal); R92.8 Other abnormal and inconclusive findings on diagnostic imaging of breast; R92.343 Mammographic extreme density, bilateral breasts
CPT/HCPCS: 76642; 77063; 77067

== ENCOUNTER 2025-02-12 13:07 | Outpatient (CLI) | payer BC, SELFPAY ==
[2025-02-12 12:54] LABS: HCG Quant, Pregnancy < 1 mIU/mL (1-3)
== END 2025-02-12 13:08 | disposition home or self-care (01) ==
PROVIDERS: PCP Student in an Organized Health Care Education/Training Program; Visit Provider Obstetrics & Gynecology
DX: O26.853 Spotting complicating pregnancy, third trimester (principal)
CPT/HCPCS: 36415; 84702